=== PATIENT | male | born 1955 ===

== ENCOUNTER 2025-01-01 13:39 | Outpatient (AMB) | payer MEDICARE, BC, SELFPAY ==
--- NOTE | 2025-01-01 13:41 | A.OFFPC_ITS ---
Vital Signs 01/01/25 13:47 Height 5 ft 4.29 in Weight 171 lb BMI 29.1 BP 120/58 L Blood Pressure Location Rt brachial Position Sitting Respiration 16 Pulse 84 Pulse Source Pulse Oximeter Temp 98.1 F Temp Source Temporal Artery Scan Pulse Oximetry (%) 99 Oxygen Delivery Method Room Air Intake Visit Reasons: pre-op cataract surgery 01/15 Car Top Bolter Required: No Accompanied by: Self / Same As Patient Allergies No Known Allergies Allergy (Verified 01/01/25 14:27) Medication List - Last Reconciled 01/01/25 by Ashlie Cohen PA-C cholecalciferol (vitamin D3) 50 mcg PO DAILY lisinopril 20 mg PO DAILY metformin 1,000 mg PO BID pravastatin 80 mg PO QPM prednisolone acetate 1% 1 drp ophthalmic (eye) QID propafenone ER 225 mg PO Q12H sodium bicarbonate 650 mg PO tamsulosin mg PO Tobacco use date assessed: 01/01/25 Fall risk assessment: No Falls in past year Last assessed Fall Risk: 01/01/25 Dental Screening Dental Screen Date: 01/01/25 Did you have a dental visit in the last 12 months?: Yes Did you have a dental problem in the last 6 months where you did not have access to dental care?: No Was dental information given to patient?: Patient has dentist HPI pre-op cataract surgery 01/15 HPI Details The patient is a 69-year-old male presenting for a new patient appointment and preoperative evaluation for cataract surgery. The patient has a history of Type 2 Diabetes Mellitus, managed with metformin 1000 mg twice daily. His recent A1c level was 6.3, indicating good glycemic control. He has a history of hypertension, currently managed with lisinopril 20 mg. He also has hyperlipidemia, for which he takes pravastatin. The patient has obstructive sleep apnea but is not using CPAP therapy. He also has a history of atrial fibrillation and bradycardia, with a recent cardioversion performed. He has chronic kidney disease, with a baseline creatinine of 1.53 and a GFR of 48. Last year, he experienced an episode of hypotension leading to kidney injury, but his creatinine levels have since improved. The patient has a history of a pacemaker implantation in August 2024, following episodes of bradycardia. He also has a history of bilateral hip surgery, corneal surgery, and appendectomy. 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 The patient has been exposed to asbestos in the past, and he has chronic anemia. Recent lab work showed hyperkalemia with a potassium level of 6.2, and vitamin D deficiency with a level of 25.8. He is advised to avoid high-potassium foods and will start on a vitamin D supplement. Social History - Alcohol Consumption: Ongoing alcohol c onsumption at a consistent level for ye ars. [facility] [place] Medical History (Updated 01/01/25 @ 14:38 by Ashlie Cohen PA-C) H/O asbestos exposure CKD (chronic kidney disease) Paroxysmal atrial fibrillation Chronic anemia Obstructive sleep apnea Hyperlipidemia Hypertension Type 2 diabetes mellitus with hemoglobin A1c goal of less than 7.0% Pre-op evaluation Vitamin D deficiency Hyperkalemia Establishing care with new doctor, encounter for Family History Father No problems noted. Mother High blood pressure Social History Housing: Condominium Alcohol intake: current Alcohol intake frequency: 0-2 drinks per day Alcohol type: hard liquor Patient Tobacco Use Status: Never used Tobacco service: No Current occupational status: retired Cognitive needs: No Hearing needs: No Vision needs: No Questionnaire PHQ-9 Over the last 2 weeks, how often have you been bothered by any of the following problems? 1. Little interest or pleasure in doing things: not at all 2. Feeling down, depressed, or hopeless: not at all 3. Trouble falling or staying asleep, or sleeping too much: not at all 4. Feeling tired or having little energy: not at all 5. Poor appetite or overeating: not at all 6. Feeling bad about yourself - or that you are a failure or have let yourself or your family down: not at all 7. Trouble concentrating on things, such as reading the newspaper or watching television: not at all 8. Moving or speaking so slowly that other people could have noticed. Or the opposite - being so fidgety or restless that you have been moving around a lot more than usual: not at all 9. Thoughts that you would be better off or of hurting yourself in some way: not at all Total score: 0 Depression Screening Interpretation: Negative Depression Screening Done: Yes 94855 - PHQ-9 Billing: Yes Source: Developed by Drs. Vamshi Bryan, Rina Ho, Rj Oneil and colleagues, with an educational crystal from [employer]. Thrive Questionnaire Date Thrive assessed: 01/01/25 I am a: Patient What is your living situation today?: I have a steady place to live Within the past 12 months, did the food you bought not last and you didn't have the money to get more?: Never true Within the past 12 months, did you worry whether your food would run out before you got money to buy more?: Never true Do you have trouble paying for medicines?: No Do you have trouble getting transportation to medical appointments?: No Do you have trouble paying your heating and electricity bill?: No Do you have trouble taking care of your child, family member or friend?: No Do you have trouble with day-to-day activities such as bathing, preparing meals, shopping, managing finances, etc.?: No Are you currently unemployed and looking for a job?: No Are you interested in more education?: No Please select the resources that you would like help with: None Currently or been in a relationship where the following occur: No concerns reported THRIVE Score: 0 AUDIT C Alcohol Use Questionnaire (AUDIT-C) 1. How often do you have a drink containing alcohol?: 4 or more times a week 2. How many drinks containing alcohol do you have on a typical day when you are drinking?: 1 or 2 3. How often do you have six or more drinks on one occasion?: Never Total Score: 4 Score Reviewed/Action Taken: No VALENTINA-7 AMB Questionnaire VALENTINA-7 Date VALENTINA - 7 assessed: 01/01/25 Feeling nervous, anxious, or on edge: 0 = Not at all Not being able to stop or control worryin = Not at all Worrying too much about different things: 0 = Not at all Trouble relaxin = Not at all Being so restless that it is hard to sit still: 0 = Not at all Becoming easily annoyed or irritable: 0 = Not at all Feeling afraid as if something awful might happen: 0 = Not at all Total VALENTINA-7 score (0-4 normal; 5-9 mild; 10-14 moderate; 15-21 severe): 0 Source: Developed by Drs. Vamshi Bryan, Rina Ho, Rj Oneil and colleagues, with an educational crystal from [employer]. VALENTINA-7 Assessment Billing VALENTINA-7 Assessment Tool: VALENTINA-7 Assessment 56320 Review of Systems Const Details: - Cardiovascular: Denies chest pain, orthopnea, or syncope. - Respiratory: Reports dyspnea on exertion with significant exertion. Denies cough, hemoptysis, or wheezing. - Gastrointestinal: Denies black or bloody stools, unintentional weight loss. Physical exam (Primary Care) Vital Signs: Last Vital Signs Temp 98.1 F 01/01/25 13:47 Pulse 84 01/01/25 13:47 Resp 16 01/01/25 13:47 BP 120/58 L 01/01/25 13:47 Pulse Ox 99 01/01/25 13:47 Oxygen Delivery Method Room Air 01/01/25 13:47 Care Plan Goal for BP management: <140/90 at Goal BMI result Body Mass Index 29.1 BMI Assessment/Plan discussion: High BMI High, discussed plan: lifestyle, weight reduction, dietary, physical activity and alcohol moderation Tobacco/Smoking Status: Tobacco use Status Tobacco use date assessed 01/01/25 01/01/25 13:47 Patient Tobacco Use Status Never used Tobacco 01/01/25 14:01 PHQ-9: PHQ-9 Score PHQ-9: Total score 0 01/01/25 14:27 Depression Screening Interpretation: Negative Thrive Assessment: Date of Thrive Assessment Date Thrive assessed 01/01/25 01/01/25 13:47 Currently or been in a relationship where the following occur: No concerns reported Const Other: Appearance: Alert. Oriented X3. No acute distress. Head: Normal external exam. Normocephalic. Atraumatic. Eyes: Pupils are equal, round, and reactive to light. Extraocular movements intact. Conjunctiva and sclera normal. Eyelids normal. Ears: External auditory canal normal. Tympanic membranes normal. Throat: Pharynx normal. Uvula midline. Moist mucous membranes. Neck: Normal inspection. Neck supple. Full range of motion. No adenopathy. Thyroid Normal. No meningeal signs. No neck mass noted. Cardiovascular: Normal heart rate and rhythm. Heart sound normal. No murmurs noted. Pulses normal throughout. Respiratory: No respiratory distress. Painless inspiration. Breath sounds normal. No wheezes/rales/rhonchi noted. Chest nontender. No accessory muscle usage noted or decreased air movement noted. Abdomen: Soft and nontender. Bowel sounds normal in all 4 quadrants. No distention noted. No organomegaly noted. No visible injury noted. Back: No costovertebral angle tenderness. Full range of motion noted. Skin: Skin warm and dry. Normal skin color. Normal skin turgor. No rashes/lesion s/lacerations noted. Extremities: No lower extremity edema. Extremities exhibit normal range of motion. Extremities nontender. Neuro: Oriented X 3. No motor deficit. No sensory deficit. Reflexes normal. Results Reviewed Results Reviewed: - Labs on 12/18/2024 reviewed and revealed: CBC normal, Hgb 12.8, Hct 39.9, MCV 102, BUN 29, glucose 96, bicarb 17, calcium 9.9, creatinine 1.53, GFR 48, potassium 6.2, vitamin D 25.8. - Tests: EKG showed atrial fibrillation with slow ventricular response. Coding Level of Care Code New Pt Level 5 (93496) Complex EM visit Add On G2211 Diagnoses Establishing care with new doctor, encounter for Z76.89 Pre-op evaluation Z01.818 Type 2 diabetes mellitus with hemoglobin A1c goal of less than 7.0% E11.9 Hypertension I10 Hyperlipidemia E78.5 Obstructive sleep apnea G47.33 Paroxysmal atrial fibrillation I48.0 CKD (chronic kidney disease) N18.9 Hyperkalemia E87.5 Vitamin D deficiency E55.9 Additional Codes VALENTINA-7 Assessment Billing - VALENTINA-7 Assessment Tool: VALENTINA-7 Assessment 69188 ([id number]) PHQ-9 - 65257 - PHQ-9 Billing: Yes ([id number]) Time Spent (min) 60 Assessment & Plan Assessment & Plan (1) Establishing care with new doctor, encounter for: Code(s): Z76.89 - Persons encountering health services in other specified circumstances Category: Medical (2) Pre-op evaluation: Code(s): Z01.818 - Encounter for other preprocedural examination Category: Medical Plan: Patient is scheduled to have cataract surgery on 01/14/2025. (3) Type 2 diabetes mellitus with hemoglobin A1c goal of less than 7.0%: Code(s): E11.9 - Type 2 diabetes mellitus without complications Category: Medical Plan: The patient's Type 2 Diabetes Mellitus is currently managed with metformin 1000 mg twice daily, and his recent A1c level of 6.3 indicates good glycemic control. Condition is chronic and stable will continue to monitor. (4) Hypertension: Code(s): I10 - Essential (primary) hypertension Category: Medical Plan: Hypertension is managed with lisinopril 20 mg. Condition is chronic and stable will continue to monitor. (5) Hyperlipidemia: Code(s): E78.5 - Hyperlipidemia, unspecified Category: Medical Plan: Hyperlipidemia is managed with pravastatin. Condition is chronic and stable continue to monitor. (6) Obstructive sleep apnea: Code(s): G47.33 - Obstructive sleep apnea (adult) (pediatric) Category: Medical Plan: The patient has obstructive sleep apnea but is not currently using CPAP therapy. Condition is chronic and stable will continue to monitor. (7) Paroxysmal atrial fibrillation: Code(s): I48.0 - Paroxysmal atrial fibrillation Category: Medical Plan: The patient has a history of atrial fibrillation and bradycardia, with a recent cardioversion performed. Condition is chronic and stable will continue to monitor. (8) CKD (chronic kidney disease): Code(s): N18.9 - Chronic kidney disease, unspecified Category: Medical Plan: The patient has chronic kidney disease with a baseline creatinine of 1.53 and a GFR of 48. Patient being followed by Nephrology at [facility]. Condition is chronic and stable will continue to monitor. (9) Hyperkalemia: Code(s): E87.5 - Hyperkalemia Category: Medical Plan: The patient has hyperkalemia with a potassium level of 6.2 and is advised to avoid high-potassium foods. Will reassess potassium levels with a basic metabolic panel within the next 24-48 hours. Patient understands and agrees with this plan. (10) Vitamin D deficiency: Code(s): E55.9 - Vitamin D deficiency, unspecified Category: Medical Plan: The patient has vitamin D deficiency with a level of 25.8 and will start on a vitamin D supplement. Condition is chronic and stable will continue to monitor. Plan Plan Patient was informed and verbally consented to the use of an ambient scribe for clinic note documentation during this visit. 1. Type 2 Diabetes Mellitus The patient's Type 2 Diabetes Mellitus is currently managed with metformin 1000 mg twice daily, and his recent A1c level of 6.3 indicates good glycemic control. 2. Hypertension Hypertension is managed with lisinopril 20 mg. 3. Hyperlipidemia Hyperlipidemia is managed with pravastatin. 4. Obstructive Sleep Apnea The patient has obstructive sleep apnea but is not currently using CPAP therapy. 5. Atrial Fibrillation The patient has a history of atrial fibrillation and bradycardia, with a recent cardioversion performed. 6. Chronic Kidney Disease The patient has chronic kidney disease with a baseline creatinine of 1.53 and a GFR of 48. 7. Hyperkalemia The patient has hyperkalemia with a potassium level of 6.2 and is advised to avoid high-potassium foods. 8. Vitamin D Deficiency The patient has vitamin D deficiency with a level of 25.8 and will start on a vitamin D supplement. During the visit, I discussed the patient's hyperkalemia and advised avoiding high-potassium foods. We also talked about starting a vitamin D supplement due to deficiency. I recommended follow-up blood work to reassess potassium levels before surgery. The patient was informed about the importance of managing these conditions to ensure safe surgical outcomes. Orders: Orders TSH reflex Free T4 Today Z00.00 - Encounter for general adult medical examination without abnormal findings Basic Metabolic Panel Today E55.9 - Vitamin D deficiency, unspecified, E87.5 - Hyperkalemia, E87.6 - Hypokalemia Magnesium Today Z00.00 - Encounter for general adult medical examination without abnormal findings Vitamin B12 and Folate Today Z00.00 - Encounter for general adult medical examination without abnormal findings ECG 12 lead EKG Today Z01.818 - Encounter for other preprocedural examination XR chest 2V Today Z01.818 - Encounter for other preprocedural examination Medications: New cholecalciferol (vitamin D3) 50 mcg PO DAILY 90 caps 1RF E55.9 - Vitamin D deficiency, unspecified Patient Instructions: - Avoid high-potassium foods such as bananas. - Start taking a vitamin D supplement daily. - Complete follow-up blood work to reassess potassium levels before surgery. - Follow up with nephrology as advised.
[2025-01-01 13:47] VITALS: BP 120/58; PULSE 84; RESP 16; TEMP 36.7; O2SAT 99; BMI 29.1
--- OUTSIDE RECORDS SUMMARY | 2025-01-01 16:08 | XMS_ITS | Data Portability ---
Author Organization [facility] [employer], [facility] Address [facility] [place] [address] Care Team Providers Care Scheduling Coordinator Name Role Phone BLANCHE GODINEZ Referring Provider KEY HUNTER Primary Care Provider Unavailabl e Assessment Encounter Date Assessment Date Assessment LastModified by Organization Details LastModified Time 11/20/2024 11/20/2024 Today's visit included topics marked reviewed below: * Assessment & education on health condition(s): reviewed today * Assessment for Palliative/Ho spice Care: reviewed today * Assessment for outstanding results/order s/consults: reviewed today * Medication Reconciliatio n: reviewed today * Medication Adherence: reviewed today * Physical Exam: reviewed today * Home Health needs addressed: reviewed today * Home AP visit needs addressed: reviewed today * Review of upcoming procedures or specialty visits: reviewed today Additional notes: teressa Not available 11/20/2024 07:45:31 Plan of Treatment Reminders Order Date Submit Date Provider Last Modified By Organization Details Last Modified Time Details Appointments LAB 10 2024 07:50A M LAB TABATHA Not available Not available Not available ESTABLISH ED OV 30 2024 11:30A M Marybel Vu APRN Not available Not available Not available ANNUAL WELLNESS SUBSEQ 15 2025 11:00A M DR BLANCHE GODINEZ Not available Not available Not available Lab vitamin D, 25-hydrox y, total, serum 2024 09// 025 teressa [facility], [address] [place] [address] [address], [place], [address], 11/20/2024 13:39:01 magnesium , serum or plasma 2024 025 [place] [address] [facility], [address], [place], [address], 11/20/2024 13:39:01 PTH (parathyr oid hormone), intact, serum or plasma 2024 025 [place] [address] [facility], [address], [place], [address], 11/20/2024 13:39:01 lipid panel, serum 2024 025 [place] [address] [facility], [address], [place], [address], 11/20/2024 13:39:01 gamma-glu tamyl transfera se (ggt), serum 2024 025 [place] [address] [facility], [address], [place], [address], 11/20/2024 13:39:01 HbA1c (hemoglob in A1c), blood 2024 025 [place] [address] [facility], [address], [place], [address], 11/20/2024 13:39:01 microalbu min/creat inine, ratio, urine 2024 025 [place] [facility], [address], [place], [address], 11/20/2024 13:39:01 PSA, total + free, serum or plasma 2024 025 [place] [facility], [address], [place], [address], 11/20/2024 13:39:01 vitamin B12 + folate, serum or blood 2024 025 [place] [address] [facility], [address], [place], [address], 11/20/2024 13:39:01 CBC 2024 025 [place] [address] [facility], [address], [place], [address], 11/20/2024 13:39:01 urinalysi s, complete 2024 025 [place] [address] [facility], [address], [place], [address], 11/20/2024 13:39:01 CMP, serum or plasma 2024 025 [place] [address] [facility], [address], [place], [address], 11/20/2024 13:39:01 venipunct ure 2024 025 [place] [address] [facility], [address], [place], [address], 11/20/2024 13:39:01 PSA, serum or plasma 2024 025 [place] [facility], [address], [place], [address], 10/03/2024 10:16:43 fecal occult blood, immunoass ay, stool 2024 025 [place] [facility], [address], [place], [address], 10/11/2024 10:11:59 vitamin B1 (thiamine ), blood 2024 025 [facility], [address], [place], [address], 11/21/2024 06:13:43 magnesium , serum or plasma 2024 025 [facility], [address], [place], [address], 11/14/2024 11:21:07 renal function panel, serum 2024 025 [facility], [address], [place], [address], 09/24/2024 04:58:47 CMP, serum or plasma 2024 025 [facility], [address], [place], [address], 11/14/2024 11:21:03 vitamin D, 25-hydrox y, total, serum 2024 025 [facility], [address], [place], [address], 11/14/2024 11:21:10 lipid panel, serum 2024 025 [facility], [address], [place], [address], 11/14/2024 11:21:06 gamma-glu tamyl transfera se (ggt), serum 2024 025 [facility], [address], [place], [address], 11/14/2024 11:21:05 CBC 2024 025 [facility], [address], [place], [address], 11/13/2024 15:43:59 HbA1c (hemoglob in A1c), blood 2024 025 [facility], [address], [place], [address], 11/13/2024 15:10:33 venipunct ure 2024 025 [facility], [address], [place], [address], 11/13/2024 11:06:51 microalbu min/creat inine, ratio, urine 2024 025 [facility], [address], [place], [address], 11/13/2024 16:35:53 urinalysi s, complete 2024 025 [place] [facility], [address], [place], [address], 11/13/2024 14:43:46 vitamin B12 + folate, serum or blood 2024 025 [place] [facility], [address], [place], [address], 11/14/2024 11:21:08 vitamin D, 25-hydrox y, total, serum 2023 025 [place] [facility], [address], [place], [address], 08/16/2024 14:35:02 lipid panel, serum 2023 025 [place] [facility], [address], [place], [address], 08/16/2024 14:25:56 gamma-glu tamyl transfera se (ggt), serum 2023 025 [facility], [address], [place], [address], 08/16/2024 14:25:50 CBC 2023 025 [facility], [address], [place], [address], 08/16/2024 14:18:19 HbA1c (hemoglob in A1c), blood 2023 025 [facility], [address], [place], [address], 08/16/2024 14:50:46 CMP, serum or plasma 2023 025 [facility], [address], [place], [address], 08/16/2024 14:25:47 venipunct ure 2023 025 [facility], [address], [place], [address], 08/16/2024 08:10:48 microalbu min/creat inine, ratio, urine 2023 025 [facility], [address], [place], [address], 08/16/2024 14:45:38 urinalysi s, complete 2023 025 [facility], [address], [place], [address], 08/16/2024 13:52:16 iron + TIBC + ferritin, serum 2023 025 [facility], [address], [place], [address], 08/16/2024 14:25:53 vitamin B12 + folate, serum or blood 2023 025 [facility], [address], [place], [address], 08/16/2024 15:01:52 TSH, serum or plasma 2023 025 [facility], [address], [place], [address], 08/16/2024 14:34:55 magnesium , serum or plasma 2023 025 [facility], [address], [place], [address], 08/16/2024 14:25:59 T4, free, serum 2023 025 [facility], [address], [place], [address], 08/16/2024 14:34:51 Referral pulmonolo gist referral - Dr. Dye & Dr. Douglas ([place]) cardiolog y would like PFT's for new atrial fibrillat ion. No longer using CPAP. hx of asbestos exposure. 2023 024 LUKE Celis MD, [address], [address], [address], 2024 13:33:04 urologist referral - pt has catheter in from hospital and needs urologist to take it out and follow. 2023 024 [facility], [address], [place], [address], 10/18/2024 09:14:07 Procedures None recorded. Surgeries None recorded. Imaging electroca rdiogram 2024 025 In-Office Order, Internal Use Only DO Not Attach Compendium DO Not Attach Compendium, Do Not Delete/merge, [id number] 10/03/2024 11:11:58 Medication Orders Xarelto 15 mg tablet 2024 025 [facility][id number], [address] [place], [address], 11/20/2024 10:33:37 Patient TargetsNo targets recorded. Patient Instructions Encounter Date Encounter Id Patient Instructions Last Modified By Organization Details Last Modified Time 01/12/2024 [id number] dehydration: car e instructions [email or web address] Not available 01/12/2024 14:56:55 Patient understands instructions and will seek medical attention if symptoms worsen as directed. [email or web address] Not available 01/12/2024 14:15:18 05/02/2024 [id number] alcohol detoxification and withdrawal: care instructions Not available 05/02/2024 10:30:55 substance use disorder: care instructions Not available 05/02/2024 10:30:55 sleep apnea: car e instructions Not available 05/02/2024 09:23:03 Patient understands instructions and will seek medical attention if symptoms worsen as directed. chart and labs and studies reviewed. Not available 05/02/2024 09:25:13 08/26/2024 [id number] alcohol detoxification and withdrawal: care instructions Not available 08/26/2024 09:46:10 substance use disorder: care instructions Not available 08/26/2024 09:46:10 Value Based Patient Guide Not available 08/26/2024 09:46:10 Patient understands instructions and will seek medical attention if symptoms persist or worsen as directed. Reviewed chart, labs and studies. Parts of this note were created using voice recognition software. 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 Please contact my office for any further clarification, if needed. [email or web address] Not available 08/26/2024 09:13:26 10/03/2024 [id number] advance directives: care instructions honey Not available 10/03/2024 10:16:27 learning about living marcos honey Not available 10/03/2024 10:16:27 do not rescuscitate education honey Not available 10/03/2024 10:16:27 Advance Directives Education w/sample forms for Living Will/Health Care Surrogate [email or web address] Not available 10/03/2024 10:16:27 Value Based Patient Guide honey Not available 10/03/2024 10:16:27 SCREENING SCHEDULE DEPRESSION SCREENING: A Depression Screening Assessment was conducted, with staff-assisted depression care supports during this encounter and all actions of this assessment and time elements of up to 15 minutes were met. COLORECTAL CANCER SCREENING: Colonoscopy, average risk, every 10 years unless advised differently by provider CERVICAL CANCER SCREENING - PAP (female only): no longer recommended due to hysterectomy, age, and/or low risk unless advised differently by provider BREAST CANCER SCREENING: Mammogram: recommended annually unless advised differently by provider OSTEOPOROSIS SCREENING - Bone density (female only): At age 65 and every 2 years or as advised by your provider CARDIOVASCULAR RISK SCREENING - AAA screening (male only): Recommended once per lifetime, if personal history of smoking greater than 100 cigs and age 65-75 VACCINE RECOMMENDATIONS: (except if you have experienced severe allergic reaction [e.g. anaphylaxis] after a previous dose/a component of these vaccines OR otherwise advised by your provider not to receive it) Covid vaccine: vaccine recommended per guidelines Influenza vaccine: recommended annually Pneumococcal Vaccine: vaccine recommended per guidelines Shingles vaccine - Shingrix: vaccine recommended per guidelines Tetanus vaccine: recommended every 10 years SCREENING SCHEDULE DEPRESSION SCREENING: COLORECTAL CANCER SCREENING: CERVICAL CANCER SCREENING - PAP: BREAST CANCER SCREENING: Self Breast exam: Mammogram: PROSTATE CANCER SCREENING - PSA: OSTEOPOROSIS SCREENING - Bone density: CARDIOVASCULAR RISK SCREENING - AAA screening: VACCINE RECOMMENDATIONS: For Ages 65 or greater (<65 yo, see CDC guidelines) Covid vaccine: booster up-to-date Influenza vaccine: recommended annually Pneumococcal Vaccine: up to date, no further PCV needed Shingles vaccine - Shingrix: up-to-date Tetanus vaccine: recommended every 10 years [email or web address] Not available 10/02/2024 07:40:46 Patient understands instructions and will seek medical attention if symptoms worsen as directed. chart and labs and studies reviewed [email or web address] Not available 10/02/2024 07:40:46 11/20/2024 [id number] alcohol detoxification and withdrawal: care instructions Not available 11/20/2024 10:36:05 substance use disorder: care instructions Not available 11/20/2024 10:36:05 sleep apnea: car e instructions Not available 11/20/2024 10:36:05 Value Based Patient Guide [email or web address] Not available 11/20/2024 10:35:27 Patient understands instructions and will seek medical attention if symptoms persist or worsen as directed. Reviewed chart, labs and studies. Parts of this note were created using voice recognition software. 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 Please contact my office for any further clarification, if needed. [email or web address] Not available 11/20/2024 10:47:44 Reason for Referral Urologist Referral for Reten tion of urine pt has catheter in from hospital and needs urologist to take it out and follow. Referring Physician: Chelly Velasco, Family Medicine, Encounter Date: 01/12/2024 [employer] Mechanic Helper Referral for O bstructive sleep apnea syndrome Dr. Dye & Dr. Douglas ([place]) cardiology would like PFT's for new atrial fibrillation. No longer using CPAP. hx of asbestos exposure. Referring Physician: Marybel Vu, Family Medicine, Encounter Date: 05/02/2024 Results Created Date Observation Date Name Description Value Unit Range Abnormal Flag Note LastModifiedBy Organization Detail LastModifiedTime 04/26/20 24 04/26/2024 A1C hemoglobin A1C 6.7 % 4.3 - 5.6 high ADA Recom jennifer d guide lines for HgbA1 C%: 5.7-6 .4% Predi abeti c < 7.0% Reaso nable glyce lois goal for non-p regna nt adult s < 8.0% Appro priat e for patie nts with hypog lycem ia or advan payton micro /macr o vascu lar compl icati ons Not Available [facility] [address] [place], [address], 04/26/2024 14:19:07 04/26/20 24 04/26/2024 A1C estimated average glucose 146 mg/dL 97 - 140 high Not Available [facility] [address], [place], [address], 04/26/2024 14:19:07 04/26/20 24 04/26/2024 PSA SCREE N PSA, total 4.87 NG/mL 0.00 - 6.50 Updat ed range s in accor dance with ACS stand ards: AGE: Refer ence Range : < 50 yr 0.00- 2.50 ng/mL 50-59 yr 0.00- 3.50 ng/mL 60-69 yr 0.00- 4.50 ng/mL > 70 yr 0.00- 6.50 ng/mL Age speci fic joy l value s from the liter ature for PSA are provi ded as a guide only. No one decis ion level is appro priat e when utili zing PSA in scree gurinder situa tion, age, famil y histo ry, previ ous value s, and other facto rs shoul d be used in decis ions invol ving PSA value s. Not Available [facility] [address] [place], [address], 04/26/2024 14:57:07 04/26/20 24 04/26/2024 TSH W/REF KRISTINE TO FT4 TSH w/reflex FT4 4.1700 uIU/m L 0.2700 - 4.2000 Not Available [facility] [address], [place], [address], 04/26/2024 15:00:25 04/26/20 24 04/26/2024 CBC W/ AUTOD IFF, COMPL ETE BLOOD COUNT WBC 5.0 K/uL 3.6 - 10.0 Not Available [facility] [address], [place], [address], 04/26/2024 15:04:03 04/26/20 24 04/26/2024 CBC W/ AUTOD IFF, COMPL ETE BLOOD COUNT RBC 4.0 M/uL 4.1 - 5.8 low Not Available [facility] [address], [place], [address], 04/26/2024 15:04:03 04/26/2004/26/2024 CBC W/ AUTOD IFF, COMPL ETE BLOOD COUNT hemoglobin 12.4 g/dL 13.2 - 17.0 low Not Available [facility] [address], [place], [address], 04/26/2024 15:04:03 04/26/2004/26/2024 CBC W/ AUTOD IFF, COMPL ETE BLOOD COUNT hematocrit 37.9 % 37.0 - 51.0 Not Available [facility] [address], [place], [address], 04/26/2024 15:04:03 04/26/20 24 04/26/2024 CBC W/ AUTOD IFF, COMPL ETE BLOOD COUNT MCV 95.9 fL 80.0 - 99.0 Not Available [facility] [address], [place], [address], 04/26/2024 15:04:03 04/26/2004/26/2024 CBC W/ AUTOD IFF, COMPL ETE BLOOD COUNT MCH 31.3 pg 27.0 - 33.0 Not Available [facility] [address], [place], [address], 04/26/2024 15:04:03 04/26/20 24 04/26/2024 CBC W/ AUTOD IFF, COMPL ETE BLOOD COUNT MCHC 32.6 g/dL 32.0 - 37.5 Not Available [facility] [address], [place], [address], 04/26/2024 15:04:03 04/26/2004/26/2024 CBC W/ AUTOD IFF, COMPL ETE BLOOD COUNT RDW 16.1 % 11.0 - 15.0 high Not Available [facility] [address], [place], [address], 04/26/2024 15:04:03 04/26/2004/26/2024 CBC W/ AUTOD IFF, COMPL ETE BLOOD COUNT nucleated RBC 0 % 0 - 2 Not Available [facility] [address], [place], [address], 04/26/2024 15:04:03 04/26/2004/26/2024 CBC W/ AUTOD IFF, COMPL ETE BLOOD COUNT platelet 216 K/uL 140 - 440 Not Available [facility] [address], [place], [address], 04/26/2024 15:04:03 04/26/2004/26/2024 CBC W/ AUTOD IFF, COMPL ETE BLOOD COUNT MPV 8.1 fL 7.4 - 10.4 Not Available [facility] [address], [place], [address], 04/26/2024 15:04:03 04/26/2004/26/2024 CBC W/ AUTOD IFF, COMPL ETE BLOOD COUNT neutrophil, percentage 55.1 % Not Available [facility] [address], [place], [address], 04/26/2024 15:04:03 04/26/2004/26/2024 CBC W/ AUTOD IFF, COMPL ETE BLOOD COUNT lymphocyte, percentage 23.4 % Not Available [facility] [address], [place], [address], 04/26/2024 15:04:03 04/26/2004/26/2024 CBC W/ AUTOD IFF, COMPL ETE BLOOD COUNT monocyte, percentage 11.0 % Not Available [facility] [address], [place], [address], 04/26/2024 15:04:03 04/26/2004/26/2024 CBC W/ AUTOD IFF, COMPL ETE BLOOD COUNT eosinophil, percentage 9.1 % Not Available [facility] [address], [place], [address], 04/26/2024 15:04:03 04/26/2004/26/2024 CBC W/ AUTOD IFF, COMPL ETE BLOOD COUNT basophil, percentage 1.4 % Not Available [facility], [place], [address], 04/26/2024 15:04:03 04/26/2004/26/2024 CBC W/ AUTOD IFF, COMPL ETE BLOOD COUNT neutrophil, absolute 2.7 K/uL 1.5 - 7.5 Not Available [facility], [place], [address], 04/26/2024 15:04:03 04/26/2004/26/2024 CBC W/ AUTOD IFF, COMPL ETE BLOOD COUNT lymphocyte, absolute 1.2 K/uL 0.8 - 4.0 Not Available [facility] [address], [place], [address], 04/26/2024 15:04:03 04/26/2004/26/2024 CBC W/ AUTOD IFF, COMPL ETE BLOOD COUNT monocyte, absolute 0.5 K/uL 0.1 - 1.0 Not Available [facility] [address], [place], [address], 04/26/2024 15:04:03 04/26/20 24 04/26/2024 CBC W/ AUTOD IFF, COMPL ETE BLOOD COUNT eosinophil, absolute 0.5 K/uL 0.1 - 1.0 Not Available [facility] [address], [place], [address], 04/26/2024 15:04:03 04/26/2004/26/2024 CBC W/ AUTOD IFF, COMPL ETE BLOOD COUNT basophil, absolute 0.1 K/uL 0.0 - 0.2 Not Available [facility] [address] [facility] [address], [place], [address], 04/26/2024 15:04:03 04/26/20 24 04/26/2024 CK creatine kinase 168 U/L 30 - 223 Not Available [facility] [address], [place], [address], 04/26/2024 16:04:34 04/26/20 24 04/26/2024 CMP, COMPR EHENS GRACY METAB OLIC PANEL glucose 101 mg/dL 70 - 100 high Not Available [facility] [address] [facility] [address], [place], [address], 04/26/2024 16:04:40 04/26/2004/26/2024 CMP, COMPR EHENS GRACY METAB OLIC PANEL BUN 23 mg/dL 7 - 25 Not Available [facility] [address], [place], [address], 04/26/2024 16:04:40 04/26/20 24 04/26/2024 CMP, COMPR EHENS GRACY METAB OLIC PANEL creatinine 1.4 mg/dL 0.6 - 1.3 high Not Available [facility] [address], [place], [address], 04/26/2024 16:04:40 04/26/20 24 04/26/2024 CMP, COMPR EHENS GRACY METAB OLIC PANEL BUN/creatini ne ratio 16 calc 10 - 25 Not Available [facility] [address], [place], [address], 04/26/2024 16:04:40 04/26/20 24 04/26/2024 CMP, COMPR EHENS GRACY METAB OLIC PANEL GFR 53 mL/mi n/1.7 3m^2 >60 low GFR < 60 mL/mi n for 3 or more month s may be indic ative of Jessica Mina se. The GFR is based on the CKD-E PI 2020 equat ion. To calcu late the new GFR from a previ ous Creat inine resul t go to: https ://husam w.jill murray.o rg/pr ofess lindaal s/kdo qi/gf r&5Fc alcul ator. Not Available [facility] [address], [place], [address], 04/26/2024 16:04:40 04/26/20 24 04/26/2024 CMP, COMPR EHENS GRACY METAB OLIC PANEL sodium 141 mmol/ L 135 - 145 Not Available [facility] [address], [place], [address], 04/26/2024 16:04:40 04/26/20 24 04/26/2024 CMP, COMPR EHENS GRACY METAB OLIC PANEL potassium 4.8 mmol/ L 3.5 - 5.5 Not Available [facility] [address], [place], [address], 04/26/2024 16:04:40 04/26/20 24 04/26/2024 CMP, COMPR EHENS GRACY METAB OLIC PANEL chloride 105 mmol/ L 100 - 115 Not Available [facility] [address], [place], [address], 04/26/2024 16:04:40 04/26/20 24 04/26/2024 CMP, COMPR EHENS GRACY METAB OLIC PANEL CO2 25 mmol/ L 21 - 33 Not Available [facility] [address], [place], [address], 04/26/2024 16:04:40 04/26/2004/26/2024 CMP, COMPR EHENS GRACY METAB OLIC PANEL calcium 9.6 mg/dL 8.8 - 10.6 Not Available [facility] [address], [place], [address], 04/26/2024 16:04:40 04/26/2004/26/2024 CMP, COMPR EHENS GRACY METAB OLIC PANEL total protein 6.6 g/dL 6.2 - 8.6 Not Available [facility] [address], [place], [address], 04/26/2024 16:04:40 04/26/20 24 04/26/2024 CMP, COMPR EHENS GRACY METAB OLIC PANEL globulin 2.4 g/dL 1.3 - 4.0 Not Available [facility] [address], [place], [address], 04/26/2024 16:04:40 04/26/2004/26/2024 CMP, COMPR EHENS GRACY METAB OLIC PANEL albumin 4.2 g/dL 3.5 - 5.7 Not Available [facility] [address], [place], [address], 04/26/2024 16:04:40 04/26/20 04/26/2024 CMP, COMPR EHENS GRACY METAB OLIC PANEL A/G ratio 1.8 calc 1.0 - 2.8 Not Available [facility] [address], [place], [address], 04/26/2024 16:04:40 04/26/20 24 04/26/2024 CMP, COMPR EHENS GRACY METAB OLIC PANEL AST (SGOT) 14 U/L 13 - 39 Not Available [facility] [address], [place], [address], 04/26/2024 16:04:40 04/26/2004/26/2024 CMP, COMPR EHENS GRACY METAB OLIC PANEL ALT (SGPT) 9 U/L 7 - 52 Not Available [facility] [address], [place], [address], 04/26/2024 16:04:40 04/26/20 24 04/26/2024 CMP, COMPR EHENS GRACY METAB OLIC PANEL alkaline phosphatase 50 U/L 20 - 128 Not Available [facility] [address], [place], [address], 04/26/2024 16:04:40 04/26/20 24 04/26/2024 CMP, COMPR EHENS GRACY METAB OLIC PANEL total bilirubin 0.4 mg/dL 0.3 - 1.0 Not Available [facility] [address], [place], [address], 04/26/2024 16:04:40 04/26/20 24 04/26/2024 GGT GGT 18 U/L 5 - 65 Not Available [facility] [address], [place], [address], 04/26/2024 16:04:41 04/26/20 24 04/26/2024 LIPID PANEL W/ CALCU LATED LDL HDL cholestrol 63 mg/dL >50 Not Available [facility] [address] [place], [address], 04/26/2024 16:04:43 04/26/20 24 04/26/2024 LIPID PANEL W/ CALCU LATED LDL cholesterol 141 mg/dL <200 Expec anton resul ts for Adult s: Total Jessica stero l: Risk class ifica tion < 200 mg/dL Kaci able 200-2 39 mg/dL Borde rline high >240 mg/dL High Not Available [facility] [address] [place], [address], 04/26/2024 16:04:43 04/26/20 24 04/26/2024 LIPID PANEL W/ CALCU LATED LDL triglyceride 60 mg/dL 30 - 150 Not Available [facility] [address] [place], [address], 04/26/2024 16:04:43 04/26/2004/26/2024 LIPID PANEL W/ CALCU LATED LDL non-HDL cholesterol 78 mg/dL <130 Kaci able < 130 mg/dL Not Available [facility] [address] [place], [address], 04/26/2024 16:04:43 04/26/20 24 04/26/2024 LIPID PANEL W/ CALCU LATED LDL chol/HDL risk ratio 2 calc < 5.0 Optim al Not Available [facility] [address] [place], [address], 04/26/2024 16:04:43 04/26/20 24 04/26/2024 LIPID PANEL W/ CALCU LATED LDL LDL calculated 66 mg/dL 0 - 99 Not Available [facility] [address], [place], [address], 04/26/2024 16:04:43 04/26/20 24 05/01/2024 FRUCT OSAMI NE fructosamine 271 umol/ L 205-28 5 Not Available [facility] [address] [place] [address] [address] [facility], [place], [address], 05/01/2024 05:56:37 04/26/20 24 04/26/2024 VENIP UNCTU RE results Compl ete Not Available [facility] [address] [place] [address] [address], [place], [address], 04/26/2024 07:42:12 08/16/1908/16/2024 URINA LYSIS , COMPL ETE W/ REFLE X TO CULTU RE color LIGHT YELLOW yellow Not Available [facility] [address] [place] [address] [address] [facility], [place], [address], 08/16/2024 13:52:16 08/16/19 25 08/16/2024 URINA LYSIS , COMPL ETE W/ REFLE X TO CULTU RE appearance CLEAR clear, cloudy Not Available [facility] [address] [place] [address] [address] [facility], [place], [address], 08/16/2024 13:52:16 08/16/19 25 08/16/2024 URINA LYSIS , COMPL ETE W/ REFLE X TO CULTU RE specific gravity 1.009 1.005- 1.030 Not Available [facility] [address] [place] [address] [address] [place], [address], 08/16/2024 13:52:16 08/16/19 25 08/16/2024 URINA LYSIS , COMPL ETE W/ REFLE X TO CULTU RE pH 5.0 5.0-8. 0 Not Available [facility] [address] [place] [address] [address] [place], [address], 08/16/2024 13:52:16 08/16/19 25 08/16/2024 URINA LYSIS , COMPL ETE W/ REFLE X TO CULTU RE glucose, urine NEGATI VE mg/dL negati ve Not Available [facility], [place], [address], 08/16/2024 13:52:16 08/16/19 25 08/16/2024 URINA LYSIS , COMPL ETE W/ REFLE X TO CULTU RE bilirubin NEGATI VE mg/dL negati ve Not Available [facility] [address] [place], [place] [address]y [address], [place], [address], 08/16/2024 13:52:16 08/16/19 25 08/16/2024 URINA LYSIS , COMPL ETE W/ REFLE X TO CULTU RE ketone NEGATI VE mg/dL negati ve Not Available [facility] [address] [place] [address] [address], [place], [address], 08/16/2024 13:52:16 08/16/19 25 08/16/2024 URINA LYSIS , COMPL ETE W/ REFLE X TO CULTU RE urobilinogen NORMAL E.U./ dL normal Not Available [facility] [address] [place] [address] [address], [place], [address], 08/16/2024 13:52:16 08/16/19 25 08/16/2024 URINA LYSIS , COMPL ETE W/ REFLE X TO CULTU RE protein NEGATI VE mg/dL negati ve Not Available [facility] [address], [place], [address], 08/16/2024 13:52:16 08/16/19 25 08/16/2024 URINA LYSIS , COMPL ETE W/ REFLE X TO CULTU RE nitrite NEGATI VE negati ve Not Available [facility] [address] [place] [address] [address], [place], [address], 08/16/2024 13:52:16 08/16/19 25 08/16/2024 URINA LYSIS , COMPL ETE W/ REFLE X TO CULTU RE blood, urine NEGATI VE mg/dL negati ve Not Available [facility] [address], [place], [address], 08/16/2024 13:52:16 08/16/19 25 08/16/2024 URINA LYSIS , COMPL ETE W/ REFLE X TO CULTU RE leukocytes NEGATI VE arian/u L negati ve A micro scopi c will refle x for: > or = trace blood , > or = 25 leuko cytes , + Nitri anatoly or > or = 1+ prote in. Urine cultu re will refle x when any of the follo wing crite erwin is met: + Nitri anatoly > or = 75 leuko cytes > or = 6 WBC/h pf Many bacte erwin and/o r any amoun t of yeast on micro scopi c. Not Available [facility] [address] [place], [place] [address]y [address], [place], [address], 08/16/2024 13:52:16 08/16/19 25 08/16/2024 CBC W/ AUTOD IFF, COMPL ETE BLOOD COUNT WBC 7.7 K/uL 3.6 - 10.0 Not Available [facility] [address] [place], [place] [address]y [address] [place], [address], 08/16/2024 14:18:19 08/16/19 25 08/16/2024 CBC W/ AUTOD IFF, COMPL ETE BLOOD COUNT RBC 3.7 M/uL 4.1 - 5.8 low Not Available [facility] [address] [place], [place] [address]y [address], [place], [address], 08/16/2024 14:18:19 08/16/19 25 08/16/2024 CBC W/ AUTOD IFF, COMPL ETE BLOOD COUNT hemoglobin 12.4 g/dL 13.2 - 17.0 low Not Available [facility], [place], [address], 08/16/2024 14:18:19 08/16/19 25 08/16/2024 CBC W/ AUTOD IFF, COMPL ETE BLOOD COUNT hematocrit 35.8 % 37.0 - 51.0 low Not Available [facility], [place], [address], 08/16/2024 14:18:19 08/16/19 25 08/16/2024 CBC W/ AUTOD IFF, COMPL ETE BLOOD COUNT MCV 97.5 fL 80.0 - 99.0 Not Available [facility], [place], [address], 08/16/2024 14:18:19 08/16/19 25 08/16/2024 CBC W/ AUTOD IFF, COMPL ETE BLOOD COUNT MCH 33.9 pg 27.0 - 33.0 high Not Available [facility] [address] [place] [address] [address], [place], [address], 08/16/2024 14:18:19 08/16/19 25 08/16/2024 CBC W/ AUTOD IFF, COMPL ETE BLOOD COUNT MCHC 34.8 g/dL 32.0 - 37.5 Not Available [facility] [address] [place] [address] [address], [place], [address], 08/16/2024 14:18:19 08/16/19 25 08/16/2024 CBC W/ AUTOD IFF, COMPL ETE BLOOD COUNT RDW 15.3 % 11.0 - 15.0 high Not Available [facility], [place], [address], 08/16/2024 14:18:19 08/16/19 25 08/16/2024 CBC W/ AUTOD IFF, COMPL ETE BLOOD COUNT nucleated RBC 0 % 0 - 2 Not Available [facility] [address] [place] [address] [address], [place], [address], 08/16/2024 14:18:19 08/16/19 25 08/16/2024 CBC W/ AUTOD IFF, COMPL ETE BLOOD COUNT platelet 205 K/uL 140 - 440 Not Available [facility] [address] [place], [place] [address]y [address], [place], [address], 08/16/2024 14:18:19 08/16/19 25 08/16/2024 CBC W/ AUTOD IFF, COMPL ETE BLOOD COUNT MPV 8.8 fL 7.4 - 10.4 Not Available [facility] [address] [place], [place] [address]y [address], [place], [address], 08/16/2024 14:18:19 08/16/19 25 08/16/2024 CBC W/ AUTOD IFF, COMPL ETE BLOOD COUNT neutrophil, percentage 77.6 % Not Available [facility] [address] [place], [place] [address]y [address], [place], [address], 08/16/2024 14:18:19 08/16/19 25 08/16/2024 CBC W/ AUTOD IFF, COMPL ETE BLOOD COUNT lymphocyte, percentage 7.6 % Not Available [facility] [address] [place], [place] [address]y [address], [place], [address], 08/16/2024 14:18:19 08/16/19 25 08/16/2024 CBC W/ AUTOD IFF, COMPL ETE BLOOD COUNT monocyte, percentage 9.5 % Not Available [facility] [address] [place], [place] [address]y [address], [place], [address], 08/16/2024 14:18:19 08/16/19 25 08/16/2024 CBC W/ AUTOD IFF, COMPL ETE BLOOD COUNT eosinophil, percentage 4.1 % Not Available [facility], [place], [address], 08/16/2024 14:18:19 08/16/19 25 08/16/2024 CBC W/ AUTOD IFF, COMPL ETE BLOOD COUNT basophil, percentage 1.2 % Not Available [facility] [address] [place], [place] [address]y [address], [place], [address], 08/16/2024 14:18:19 08/16/19 25 08/16/2024 CBC W/ AUTOD IFF, COMPL ETE BLOOD COUNT neutrophil, absolute 6.0 K/uL 1.5 - 7.5 Not Available [facility] [address] [place], [place] [address], [place], [address], 08/16/2024 14:18:19 08/16/19 25 08/16/2024 CBC W/ AUTOD IFF, COMPL ETE BLOOD COUNT lymphocyte, absolute 0.6 K/uL 0.8 - 4.0 low Not Available [facility] [address] [place], [place] [address], [place], [address], 08/16/2024 14:18:19 08/16/19 25 08/16/2024 CBC W/ AUTOD IFF, COMPL ETE BLOOD COUNT monocyte, absolute 0.7 K/uL 0.1 - 1.0 Not Available [facility] [address] [place], [place] [address], [place], [address], 08/16/2024 14:18:19 08/16/19 25 08/16/2024 CBC W/ AUTOD IFF, COMPL ETE BLOOD COUNT eosinophil, absolute 0.3 K/uL 0.1 - 1.0 Not Available [facility] [address] [place], [place] [address]y [address], [place], [address], 08/16/2024 14:18:19 08/16/19 25 08/16/2024 CBC W/ AUTOD IFF, COMPL ETE BLOOD COUNT basophil, absolute 0.1 K/uL 0.0 - 0.2 Not Available [facility] [address] [facility] [address], [place], [address], 08/16/2024 14:18:19 08/16/19 25 08/16/2024 CMP, COMPR EHENS GRACY METAB OLIC PANEL glucose 126 mg/dL 70 - 100 high Not Available [facility] [address] [facility] [address], [place], [address], 08/16/2024 14:25:47 08/16/19 25 08/16/2024 CMP, COMPR EHENS GRACY METAB OLIC PANEL BUN 26 mg/dL 7 - 25 high Not Available [facility] [address] [facility] [address], [place], [address], 08/16/2024 14:25:47 08/16/19 25 08/16/2024 CMP, COMPR EHENS GRACY METAB OLIC PANEL creatinine 1.5 mg/dL 0.6 - 1.3 high Not Available [facility] [address] [facility] [address], [place], [address], 08/16/2024 14:25:47 08/16/19 25 08/16/2024 CMP, COMPR EHENS GRACY METAB OLIC PANEL BUN/creatini ne ratio 17 calc 10 - 25 Not Available [facility] [address] [place] [address] [address] [facility], [place], [address], 08/16/2024 14:25:47 08/16/19 25 08/16/2024 CMP, COMPR EHENS GRACY METAB OLIC PANEL GFR 49 mL/mi n/1.7 3m^2 >60 low GFR < 60 mL/mi n for 3 or more month s may be indic ative of Kidne y Disea se. The GFR is based on the CKD-E PI 2020 equat ion. Not Available [facility] [address], [place], [address], 08/16/2024 14:25:47 08/16/19 25 08/16/2024 CMP, COMPR EHENS GRACY METAB OLIC PANEL sodium 139 mmol/ L 135 - 145 Not Available [facility] [address], [place], [address], 08/16/2024 14:25:47 08/16/19 25 08/16/2024 CMP, COMPR EHENS GRACY METAB OLIC PANEL potassium 4.6 mmol/ L 3.5 - 5.5 Not Available [facility] [address], [place], [address], 08/16/2024 14:25:47 08/16/19 25 08/16/2024 CMP, COMPR EHENS GRACY METAB OLIC PANEL chloride 102 mmol/ L 100 - 115 Not Available [facility], [place], [address], 08/16/2024 14:25:47 08/16/19 25 08/16/2024 CMP, COMPR EHENS GRACY METAB OLIC PANEL CO2 25 mmol/ L 21 - 33 Not Available [facility], [place], [address], 08/16/2024 14:25:47 08/16/19 25 08/16/2024 CMP, COMPR EHENS GRACY METAB OLIC PANEL calcium 9.7 mg/dL 8.8 - 10.6 Not Available [facility] [address], [place], [address], 08/16/2024 14:25:47 08/16/19 25 08/16/2024 CMP, COMPR EHENS GRACY METAB OLIC PANEL total protein 7.2 g/dL 6.2 - 8.6 Not Available [facility], [place], [address], 08/16/2024 14:25:47 08/16/19 25 08/16/2024 CMP, COMPR EHENS GRACY METAB OLIC PANEL globulin 2.7 g/dL 1.3 - 4.0 Not Available [facility] [address], [place], [address], 08/16/2024 14:25:47 08/16/19 25 08/16/2024 CMP, COMPR EHENS GRACY METAB OLIC PANEL albumin 4.5 g/dL 3.5 - 5.7 Not Available [facility] [address], [place], [address], 08/16/2024 14:25:47 08/16/19 25 08/16/2024 CMP, COMPR EHENS GRACY METAB OLIC PANEL A/G ratio 1.6 calc 1.0 - 2.8 Not Available [facility], [place], [address], 08/16/2024 14:25:47 08/16/19 25 08/16/2024 CMP, COMPR EHENS GRACY METAB OLIC PANEL AST (SGOT) 13 U/L 13 - 39 Not Available [facility] [place], [address], 08/16/2024 14:25:47 08/16/19 25 08/16/2024 CMP, COMPR EHENS GRACY METAB OLIC PANEL ALT (SGPT) 8 U/L 7 - 52 Not Available [facility] [address] [place], [address], 08/16/2024 14:25:47 08/16/19 25 08/16/2024 CMP, COMPR EHENS GRACY METAB OLIC PANEL alkaline phosphatase 61 U/L 20 - 128 Not Available [facility] [address] [place], [place] [address]y [address], [place], [address], 08/16/2024 14:25:47 08/16/19 25 08/16/2024 CMP, COMPR EHENS GRACY METAB OLIC PANEL total bilirubin 0.8 mg/dL 0.3 - 1.0 Not Available [facility], [place], [address], 08/16/2024 14:25:47 08/16/19 25 08/16/2024 GGT GGT 23 U/L 5 - 65 Not Available [facility] [address], [place], [address], 08/16/2024 14:25:50 08/16/19 25 08/16/2024 IRON, TIBC & ALEXA TIN PANEL serum iron 58 ug/dL 45 - 210 Not Available [facility] [address] [place], [place] [address]y [address], [place], [address], 08/16/2024 14:25:53 08/16/19 25 08/16/2024 IRON, TIBC & ALEXA TIN PANEL iron binding capacity 366 ug/dL 250 - 450 Not Available [facility], [place], [address], 08/16/2024 14:25:53 08/16/19 25 08/16/2024 IRON, TIBC & ALEXA TIN PANEL unsaturated iron binding capacity 308 ug/dL Not Available [facility] [address], [place], [address], 08/16/2024 14:25:53 08/16/19 25 08/16/2024 IRON, TIBC & ALEXA TIN PANEL % iron saturation 16 % 13 - 45 Not Available [facility], [place], [address], 08/16/2024 14:25:53 08/16/19 25 08/16/2024 IRON, TIBC & ALEXA TIN PANEL ferritin 121 NG/mL 16 - 243 Not Available [facility] [address] [facility] [address] [place], [address], 08/16/2024 14:25:53 08/16/19 25 08/16/2024 LIPID PANEL W/ CALCU LATED LDL HDL cholestrol 70 mg/dL >50 Not Available [facility] [address] [facility] [address] [place], [address], 08/16/2024 14:25:56 08/16/19 25 08/16/2024 LIPID PANEL W/ CALCU LATED LDL cholesterol 140 mg/dL <200 Expec anton resul ts for Adult s: Total Jessica stero l: Risk class ifica tion < 200 mg/dL Kaci able 200-2 39 mg/dL Borde rline high >240 mg/dL High Not Available [facility] [address] [facility] [address] [place], [address], 08/16/2024 14:25:56 08/16/19 25 08/16/2024 LIPID PANEL W/ CALCU LATED LDL triglyceride 74 mg/dL 30 - 150 Not Available [facility] [address] [facility] [address] [place], [address], 08/16/2024 14:25:56 08/16/19 25 08/16/2024 LIPID PANEL W/ CALCU LATED LDL non-HDL cholesterol 70 mg/dL <130 Kaci able < 130 mg/dL Not Available [facility] [address] [facility] [address] [place], [address], 08/16/2024 14:25:56 08/16/19 25 08/16/2024 LIPID PANEL W/ CALCU LATED LDL chol/HDL risk ratio 2 calc < 5.0 Optim al Not Available [facility] [address] [facility] [address] [place], [address], 08/16/2024 14:25:56 08/16/19 25 08/16/2024 LIPID PANEL W/ CALCU LATED LDL LDL calculated 55 mg/dL 0 - 99 Not Available [facility] [address] [facility] [address] [place], [address], 08/16/2024 14:25:56 08/16/19 25 08/16/2024 MAGNE SIUM, SERUM magnesium 1.7 mg/dL 1.7 - 2.5 Not Available [facility] [address] [facility] [address] [place], [address], 08/16/2024 14:25:59 08/16/19 25 08/16/2024 T4, FREE free T4 1.320 NG/dL 0.930 - 1.770 Not Available [facility] [address] [place], [address], 08/16/2024 14:34:51 08/16/19 25 08/16/2024 TSH, THYRO ID STIMU LATIN G HORMO NE TSH 3.2600 uIU/m L 0.2700 - 4.2000 Not Available [facility] [address] [facility] [address] [place], [address], 08/16/2024 14:34:54 08/16/19 25 08/16/2024 VITAM IN D, 25-HY DROXY vitamin D, 25 hydroxy 33.50 NG/mL 30.00 - 100.00 [place] Jessica emmanuel Found ation consi ders level s < 30 ng/mL to be insuf ficie nt or defic ient. Not Available [facility] [address] [facility] [address] [place], [address], 08/16/2024 14:35:01 08/16/19 25 08/16/2024 MICRO ALBUM IN, RAND (UR/C REAT) urine albumin 19 mg/L <30 Not Available [facility] [address] [place], [address], 08/16/2024 14:45:38 08/16/19 25 08/16/2024 MICRO ALBUM IN, RAND (UR/C REAT) creatinine, urine 53 mg/dL 20 - 320 Not Available [facility] [address] [place], [address], 08/16/2024 14:45:38 08/16/19 25 08/16/2024 MICRO ALBUM IN, RAND (UR/C REAT) AC ratio 35.6 mg/g <30.0 high Refer ence Inter vals: The Ameri can Diabe anatoly Assoc iatio n defin ition of moder ately incre ased urine album in urine spot colle ction (mcg/ mg creat inine ) is as follo ws: < 30 Joy l 30 - 229 Moder ately incre ased >= 300 Clini jeannette album inuri a For diagn ostic purpo ses resul ts shoul d alway s be asses sed in conju nctio n with the patie nt's medic al histo ry, clini jeannette exami natio n and other findi ngs. Not Available [facility] [address] [place], [address], 08/16/2024 14:45:38 08/16/19 25 08/16/2024 A1C hemoglobin A1C 6.0 % 4.3 - 5.6 high ADA Recom jennifer d guide lines for HgbA1 C%: 5.7-6 .4% Predi abeti c < 7.0% Reaso nable glyce lois goal for non-p regna nt adult s < 8.0% Appro priat e for patie nts with hypog lycem ia or advan payton micro /macr o vascu lar compl icati ons Not Available [facility] [address], [place], [address], 08/16/2024 14:50:46 08/16/19 25 08/16/2024 A1C estimated average glucose 126 mg/dL 97 - 140 Not Available [facility] [address], [place], [address], 08/16/2024 14:50:46 08/16/19 25 08/16/2024 VITAM IN B12 & FOLAT E vitamin B-12 1547 pg/mL 232 - 1245 high Not Available [facility] [address], [place], [address], 08/16/2024 15:01:52 08/16/19 25 08/16/2024 VITAM IN B12 & FOLAT E folate 6.09 NG/mL >3.10 A serum Folat e axel ntrat ion of < 3.1 ng/ml is consi dered to repre sent clini jeannette defic iency . Not Available [facility] [address] [facility] [address], [place], [address], 08/16/2024 15:01:52 08/16/19 25 08/16/2024 VENIP UNCTU RE results Compl ete Not Available [facility] [address] [facility] [address], [place], [address], 08/16/2024 08:10:48 09/24/19 25 09/24/2024 RENAL PROFI LE glucose 138 mg/dL 65-99 high Fasti ng refer ence inter leyda For someo ne witho ut known diabe anatoly, a gluco se value >125 mg/dL indic ates that they may have diabe anatoly and this shoul d be confi rmed with a follo w-up test. Not Available [facility] [address] [facility] [address], [place], [address], 09/24/2024 04:58:47 09/24/19 25 09/24/2024 RENAL PROFI LE urea nitrogen (BUN) 22 mg/dL 7-25 normal Not Available [facility] [address] [facility] [address], [place], [address], 09/24/2024 04:58:47 09/24/19 25 09/24/2024 RENAL PROFI LE creatinine 1.47 mg/dL 0.70-1 .28 high Not Available [facility] [address] [facility] [address], [place], [address], 09/24/2024 04:58:47 09/24/19 25 09/24/2024 RENAL PROFI LE eGFR 51 mL/mi n/1.7 3m2 > or = 60 low Not Available [facility] [address] [facility] [address], [place], [address], 09/24/2024 04:58:47 09/24/19 25 09/24/2024 RENAL PROFI LE BUN/creatini ne ratio 15 (calc ) 6-22 normal Not Available [facility] [address] [facility] [address], [place], [address], 09/24/2024 04:58:47 09/24/19 25 09/24/2024 RENAL PROFI LE sodium 139 mmol/ L 135-14 6 normal Not Available [facility] [address] [facility] [address] [place], [address], 09/24/2024 04:58:47 09/24/19 25 09/24/2024 RENAL PROFI LE potassium 4.3 mmol/ L 3.5-5. 3 normal Not Available [facility] [address] [facility] [address], [place], [address], 09/24/2024 04:58:47 09/24/19 25 09/24/2024 RENAL PROFI LE chloride 102 mmol/ L 98-110 normal Not Available [facility] [address] [facility] [address], [place], [address], 09/24/2024 04:58:47 09/24/19 25 09/24/2024 RENAL PROFI LE carbon dioxide 27 mmol/ L 20-32 normal Not Available [facility] [address] [facility] [address] [facility], [place], [address], 09/24/2024 04:58:47 09/24/19 25 09/24/2024 RENAL PROFI LE calcium 10.1 mg/dL 8.6-10 .3 normal Not Available [facility] [address] [facility] [address] [facility], [place], [address], 09/24/2024 04:58:47 09/24/19 25 09/24/2024 RENAL PROFI LE phosphate ( phosphorus) 3.7 mg/dL 2.1-4. 3 normal Not Available [facility], [place], [address], 09/24/2024 04:58:47 09/24/19 25 09/24/2024 RENAL PROFI LE albumin 4.8 g/dL 3.6-5. 1 normal Not Available [facility] [address] [place] [address], [place], [address], 09/24/2024 04:58:47 09/24/19 25 09/23/2024 VENIP UNCTU RE results Compl ete Not Available [facility] [address] [place] [address] [address] [place], [address], 09/23/2024 13:27:51 10/11/19 25 10/11/2024 IFOBT NEO ifobt, screening NEGATI VE negati ve Not Available [facility] [address] [place] [address], [address], 10/11/2024 10:11:59 11/14/19 25 11/13/2024 URINA LYSIS , COMPL ETE W/ REFLE X TO CULTU RE color YELLOW yellow Not Available [facility] [address] [place] [address] [address], [place], [address], 11/13/2024 14:43:46 11/14/19 25 11/13/2024 URINA LYSIS , COMPL ETE W/ REFLE X TO CULTU RE appearance CLEAR clear, cloudy Not Available [facility] [address] [place] [address] [address], [place], [address], 11/13/2024 14:43:46 11/14/19 25 11/13/2024 URINA LYSIS , COMPL ETE W/ REFLE X TO CULTU RE specific gravity 1.010 1.005- 1.030 Not Available [facility] [address] [place] [address] [address], [place], [address], 11/13/2024 14:43:46 11/14/19 25 11/13/2024 URINA LYSIS , COMPL ETE W/ REFLE X TO CULTU RE pH 5.0 5.0-8. 0 Not Available [facility] [address] [place] [address] [address] [facility], [place], [address], 11/13/2024 14:43:46 11/14/19 25 11/13/2024 URINA LYSIS , COMPL ETE W/ REFLE X TO CULTU RE glucose, urine NEGATI VE mg/dL negati ve Not Available [facility] [address] [place] [address] [address], [place], [address], 11/13/2024 14:43:46 11/14/19 25 11/13/2024 URINA LYSIS , COMPL ETE W/ REFLE X TO CULTU RE bilirubin NEGATI VE mg/dL negati ve Not Available [facility] [address] [place] [address] [address], [place], [address], 11/13/2024 14:43:46 11/14/19 25 11/13/2024 URINA LYSIS , COMPL ETE W/ REFLE X TO CULTU RE ketone NEGATI VE mg/dL negati ve Not Available [facility] [address] [place] [address], [place], [address], 11/13/2024 14:43:46 11/14/19 25 11/13/2024 URINA LYSIS , COMPL ETE W/ REFLE X TO CULTU RE urobilinogen NORMAL E.U./ dL normal Not Available [facility] [address] [place] [address] [address] [facility], [place], [address], 11/13/2024 14:43:46 11/14/19 25 11/13/2024 URINA LYSIS , COMPL ETE W/ REFLE X TO CULTU RE protein NEGATI VE mg/dL negati ve Not Available [facility] [address] [place] [address], [address], 11/13/2024 14:43:46 11/14/19 25 11/13/2024 URINA LYSIS , COMPL ETE W/ REFLE X TO CULTU RE nitrite NEGATI VE negati ve Not Available [facility] [address] [place] [address], [address], 11/13/2024 14:43:46 11/14/19 25 11/13/2024 URINA LYSIS , COMPL ETE W/ REFLE X TO CULTU RE blood, urine NEGATI VE mg/dL negati ve Not Available [facility] [address] [place] [address], [place], [address], 11/13/2024 14:43:46 11/14/19 25 11/13/2024 URINA LYSIS , COMPL ETE W/ REFLE X TO CULTU RE leukocytes NEGATI VE arian/u L negati ve A micro scopi c will refle x for: > or = trace blood , > or = 25 leuko cytes , + Nitri anatoly or > or = 1+ prote in. Urine cultu re will refle x when any of the follo wing crite erwin is met: + Nitri anatoly > or = 75 leuko cytes > or = 6 WBC/h pf Many bacte erwin and/o r any amoun t of yeast on micro scopi c. Not Available [facility] [address] [facility] [address], [place], [address], 11/13/2024 14:43:46 11/14/19 25 11/13/2024 A1C hemoglobin A1C 6.1 % 4.3 - 5.6 high ADA Recom jennifer d guide lines for HgbA1 C%: 5.7-6 .4% Predi abeti c < 7.0% Reaso nable glyce lois goal for non-p regna nt adult s < 8.0% Appro priat e for patie nts with hypog lycem ia or advan payton micro /macr o vascu lar compl icati ons Not Available [facility] [address] [facility] [address] [place], [address], 11/13/2024 15:10:33 11/14/19 25 11/13/2024 A1C estimated average glucose 128 mg/dL 97 - 140 Not Available [facility] [address] [facility] [address] [place], [address], 11/13/2024 15:10:33 11/14/19 25 11/13/2024 CBC W/ AUTOD IFF, COMPL ETE BLOOD COUNT WBC 4.9 K/uL 3.6 - 10.0 Not Available [facility] [address] [facility] [address] [place], [address], 11/13/2024 15:43:58 11/14/19 25 11/13/2024 CBC W/ AUTOD IFF, COMPL ETE BLOOD COUNT RBC 4.0 M/uL 4.1 - 5.8 low Not Available [facility] [address] [facility] [address], [place], [address], 11/13/2024 15:43:58 11/14/19 25 11/13/2024 CBC W/ AUTOD IFF, COMPL ETE BLOOD COUNT hemoglobin 13.5 g/dL 13.2 - 17.0 Not Available [facility], [place], [address], 11/13/2024 15:43:58 11/14/19 25 11/13/2024 CBC W/ AUTOD IFF, COMPL ETE BLOOD COUNT hematocrit 40.7 % 37.0 - 51.0 Not Available [facility], [place], [address], 11/13/2024 15:43:58 11/14/19 25 11/13/2024 CBC W/ AUTOD IFF, COMPL ETE BLOOD COUNT MCV 102.1 fL 80.0 - 99.0 high Not Available [facility] [address] [place] [address] [address], [place], [address], 11/13/2024 15:43:58 11/14/19 25 11/13/2024 CBC W/ AUTOD IFF, COMPL ETE BLOOD COUNT MCH 33.8 pg 27.0 - 33.0 high Not Available [facility] [address] [place] [address] [address], [place], [address], 11/13/2024 15:43:58 11/14/19 25 11/13/2024 CBC W/ AUTOD IFF, COMPL ETE BLOOD COUNT MCHC 33.1 g/dL 32.0 - 37.5 Not Available [facility], [place], [address], 11/13/2024 15:43:58 11/14/19 25 11/13/2024 CBC W/ AUTOD IFF, COMPL ETE BLOOD COUNT RDW 15.0 % 11.0 - 15.0 Not Available [facility] [address] [place], [place] [address]y [address], [place], [address], 11/13/2024 15:43:58 11/14/19 25 11/13/2024 CBC W/ AUTOD IFF, COMPL ETE BLOOD COUNT nucleated RBC 0 % 0 - 2 Not Available [facility] [address] [place], [place] [address]y [address], [place], [address], 11/13/2024 15:43:58 11/14/19 25 11/13/2024 CBC W/ AUTOD IFF, COMPL ETE BLOOD COUNT platelet 223 K/uL 140 - 440 Not Available [facility] [address] [place], [place] [address]y [address], [place], [address], 11/13/2024 15:43:58 11/14/19 25 11/13/2024 CBC W/ AUTOD IFF, COMPL ETE BLOOD COUNT MPV 8.1 fL 7.4 - 10.4 Not Available [facility] [address] [place], [place] [address]y [address], [place], [address], 11/13/2024 15:43:58 11/14/19 25 11/13/2024 CBC W/ AUTOD IFF, COMPL ETE BLOOD COUNT neutrophil, percentage 70.3 % Not Available [facility] [address] [place], [place] [address]y [address] [place], [address], 11/13/2024 15:43:58 11/14/19 25 11/13/2024 CBC W/ AUTOD IFF, COMPL ETE BLOOD COUNT lymphocyte, percentage 13.1 % Not Available [facility] [address] [place], [place] [address]y [address], [place], [address], 11/13/2024 15:43:58 11/14/19 25 11/13/2024 CBC W/ AUTOD IFF, COMPL ETE BLOOD COUNT monocyte, percentage 10.4 % Not Available [facility] [address] [place], [place] [address]y [address], [place], [address], 11/13/2024 15:43:58 11/14/19 25 11/13/2024 CBC W/ AUTOD IFF, COMPL ETE BLOOD COUNT eosinophil, percentage 5.1 % Not Available [facility] [address] [place], [place] [address]y [address], [place], [address], 11/13/2024 15:43:58 11/14/19 25 11/13/2024 CBC W/ AUTOD IFF, COMPL ETE BLOOD COUNT basophil, percentage 1.1 % Not Available [facility] [address] [place], [place] [address]y [address], [place], [address], 11/13/2024 15:43:58 11/14/19 25 11/13/2024 CBC W/ AUTOD IFF, COMPL ETE BLOOD COUNT neutrophil, absolute 3.4 K/uL 1.5 - 7.5 Not Available [facility] [address] [place], [place] [address], [place], [address], 11/13/2024 15:43:58 11/14/19 25 11/13/2024 CBC W/ AUTOD IFF, COMPL ETE BLOOD COUNT lymphocyte, absolute 0.6 K/uL 0.8 - 4.0 low Not Available [facility] [address] [place], [place] [address], [place], [address], 11/13/2024 15:43:58 11/14/19 25 11/13/2024 CBC W/ AUTOD IFF, COMPL ETE BLOOD COUNT monocyte, absolute 0.5 K/uL 0.1 - 1.0 Not Available [facility] [address] [place], [place] [address], [place], [address], 11/13/2024 15:43:58 11/14/19 25 11/13/2024 CBC W/ AUTOD IFF, COMPL ETE BLOOD COUNT eosinophil, absolute 0.2 K/uL 0.1 - 1.0 Not Available [facility] [address] [facility] [address], [place], [address], 11/13/2024 15:43:58 11/14/19 25 11/13/2024 CBC W/ AUTOD IFF, COMPL ETE BLOOD COUNT basophil, absolute 0.1 K/uL 0.0 - 0.2 Not Available [facility] [address] [facility] [address] [place], [address], 11/13/2024 15:43:58 11/14/19 25 11/13/2024 MICRO ALBUM IN, RAND (UR/C REAT) urine albumin 14 mg/L <30 Not Available [facility] [address] [facility] [address] [facility], [place], [address], 11/13/2024 16:35:53 11/14/19 25 11/13/2024 MICRO ALBUM IN, RAND (UR/C REAT) creatinine, urine 65 mg/dL 20 - 320 Not Available [facility] [address] [facility] [address] [facility], [place], [address], 11/13/2024 16:35:53 11/14/19 25 11/13/2024 MICRO ALBUM IN, RAND (UR/C REAT) AC ratio 20.9 mg/g <30.0 Refer ence Inter vals: The Ameri can Diabe anatoly Assoc iatio n defin ition of moder ately incre ased urine album in urine spot colle ction (mcg/ mg creat inine ) is as follo ws: < 30 Joy l 30 - 229 Moder ately incre ased >= 300 Clini jeannette album inuri a For diagn ostic purpo ses resul ts shoul d alway s be asses sed in conju nctio n with the patie nt's medic al histo ry, clini jeannette exami natio n and other findi ngs. Not Available [facility] [address] [facility] [address] [facility], [place], [address], 11/13/2024 16:35:53 11/14/19 25 11/14/2024 CMP, COMPR EHENS GRACY METAB OLIC PANEL glucose 140 mg/dL 65-99 high Fasti ng refer ence inter leyda For someo ne witho ut known diabe anatoly, a gluco se value >125 mg/dL indic ates that they may have diabe anatoly and this shoul d be confi rmed with a follo w-up test. Not Available [facility] [address] [facility] [address], [place], [address], 11/14/2024 11:21:03 11/14/19 25 11/14/2024 CMP, COMPR EHENS GRACY METAB OLIC PANEL urea nitrogen (BUN) 37 mg/dL 7-25 high Not Available [facility] [address] [facility] [address] [place], [address], 11/14/2024 11:21:03 11/14/19 25 11/14/2024 CMP, COMPR EHENS GRACY METAB OLIC PANEL creatinine 1.95 mg/dL 0.70-1 .28 high Not Available [facility] [address] [facility] [address], [place], [address], 11/14/2024 11:21:03 11/14/19 25 11/14/2024 CMP, COMPR EHENS GRACY METAB OLIC PANEL eGFR 36 mL/mi n/1.7 3m2 > or = 60 low Not Available [facility] [address] [facility] [address], [place], [address], 11/14/2024 11:21:03 11/14/19 25 11/14/2024 CMP, COMPR EHENS GRACY METAB OLIC PANEL BUN/creatini ne ratio 19 (calc ) 6-22 normal Not Available [facility] [address] [facility] [address] [place], [address], 11/14/2024 11:21:03 11/14/19 25 11/14/2024 CMP, COMPR EHENS GRACY METAB OLIC PANEL sodium 137 mmol/ L 135-14 6 normal Not Available [facility] [address], [place], [address], 11/14/2024 11:21:03 11/14/19 25 11/14/2024 CMP, COMPR EHENS GRACY METAB OLIC PANEL potassium 5.6 mmol/ L 3.5-5. 3 high Not Available [facility] [address] [facility] [address], [place], [address], 11/14/2024 11:21:03 11/14/19 25 11/14/2024 CMP, COMPR EHENS GRACY METAB OLIC PANEL chloride 106 mmol/ L 98-110 normal Not Available [facility] [address], [place], [address], 11/14/2024 11:21:03 11/14/19 25 11/14/2024 CMP, COMPR EHENS GRACY METAB OLIC PANEL carbon dioxide 22 mmol/ L 20-32 normal Not Available [facility] [address], [place], [address], 11/14/2024 11:21:03 11/14/19 25 11/14/2024 CMP, COMPR EHENS GRACY METAB OLIC PANEL calcium 10.2 mg/dL 8.6-10 .3 normal Not Available [facility] [address] [facility] [address], [place], [address], 11/14/2024 11:21:03 11/14/19 25 11/14/2024 CMP, COMPR EHENS GRACY METAB OLIC PANEL protein, total 7.0 g/dL 6.1-8. 1 normal Not Available [facility] [address], [place], [address], 11/14/2024 11:21:03 11/14/19 25 11/14/2024 CMP, COMPR EHENS GRACY METAB OLIC PANEL albumin 4.7 g/dL 3.6-5. 1 normal Not Available [facility] [address] [facility] [address], [place], [address], 11/14/2024 11:21:03 11/14/19 25 11/14/2024 CMP, COMPR EHENS GRACY METAB OLIC PANEL globulin 2.3 g/dL_ (calc ) 1.9-3. 7 normal Not Available [facility] [address] [facility] [address], [place], [address], 11/14/2024 11:21:03 11/14/19 25 11/14/2024 CMP, COMPR EHENS GRACY METAB OLIC PANEL albumin/glob ulin ratio 2.0 (calc ) 1.0-2. 5 normal Not Available [facility] [address] [facility] [address], [place], [address], 11/14/2024 11:21:03 11/14/19 25 11/14/2024 CMP, COMPR EHENS GRACY METAB OLIC PANEL bilirubin, total 0.5 mg/dL 0.2-1. 2 normal Not Available [facility] [address] [facility] [address], [place], [address], 11/14/2024 11:21:03 11/14/19 25 11/14/2024 CMP, COMPR EHENS GRACY METAB OLIC PANEL alkaline phosphatase 65 U/L 35-144 normal Not Available [facility] [address] [facility] [address], [place], [address], 11/14/2024 11:21:03 11/14/19 25 11/14/2024 CMP, COMPR EHENS GRACY METAB OLIC PANEL AST 15 U/L 10-35 normal Not Available [facility] [address], [place], [address], 11/14/2024 11:21:03 11/14/19 25 11/14/2024 CMP, COMPR EHENS GRACY METAB OLIC PANEL ALT 13 U/L 9-46 normal Not Available [facility] [address] [facility] [address], [place], [address], 11/14/2024 11:21:03 11/14/19 25 11/14/2024 GGT GGT 53 U/L 3-70 normal Not Available [facility] [address] [facility] [address], [place], [address], 11/14/2024 11:21:04 11/14/19 25 11/14/2024 LIPID PANEL W/ CALCU LATED LDL cholesterol, total 155 mg/dL <200 normal Not Available [facility] [address] [place] [address] [address] [place], [address], 11/14/2024 11:21:06 11/14/19 25 11/14/2024 LIPID PANEL W/ CALCU LATED LDL HDL cholesterol 71 mg/dL > or = 40 normal Not Available [facility] [address] [facility] [address] [facility], [place], [address], 11/14/2024 11:21:06 11/14/19 25 11/14/2024 LIPID PANEL W/ CALCU LATED LDL triglyceride s 100 mg/dL <150 normal Not Available [facility] [address] [place] [address] [address] [place], [address], 11/14/2024 11:21:06 11/14/19 25 11/14/2024 LIPID PANEL W/ CALCU LATED LDL LDL-choleste rol 65 mg/dL _(jeannette c) normal Refer ence range : <100 Kaci able range <100 mg/dL for prima ry preve ntion ; <70 mg/dL for patie nts with CHD or diabe tic patie nts with > or = 2 CHD risk facto rs. LDL-C is now calcu lated using the Radha n-Hop kins calccarly garcía n, which is a valid ated novel quentino george welch acy than the Fried hunter equat ion in the estim ation of LDL-C . Radha collier SS et al. ARLEEN. 2013; 310(1 9): 2061- 2068 (http ://ed ucati on.Qu guillermoZEturf. com/f aq/FA Q164) Not Available [facility] [address], [place], [address], 11/14/2024 11:21:06 11/14/19 25 11/14/2024 LIPID PANEL W/ CALCU LATED LDL chol/HDLC ratio 2.2 (calc ) <5.0 normal Not Available [facility] [address] [facility] [address], [place], [address], 11/14/2024 11:21:06 11/14/19 25 11/14/2024 LIPID PANEL W/ CALCU LATED LDL non HDL cholesterol 84 mg/dL _(jeannette c) <130 normal For patie nts with diabe anatoly plus 1 major ASCVD risk facto r, treat ing to a non-H DL-C goal of <100 mg/dL (LDL- C of <70 mg/dL ) is consi ileana nevarezo n. Not Available [facility] [address], [place], [address], 11/14/2024 11:21:06 11/14/19 25 11/14/2024 MAGNE SIUM, SERUM magnesium 1.6 mg/dL 1.5-2. 5 normal Not Available [facility] [address], [place], [address], 11/14/2024 11:21:07 11/14/19 25 11/14/2024 VITAM IN B12 & FOLAT E vitamin B12 531 pg/mL 200-11 00 normal Not Available [facility] [address], [place], [address], 11/14/2024 11:21:08 11/14/19 25 11/14/2024 VITAM IN B12 & FOLAT E folate, serum 4.4 NG/mL low Refer ence Range Low: <3.4 Borde rline : 3.4-5 .4 Joy l: >5.4 Not Available [facility] [address], [place], [address], 11/14/2024 11:21:08 11/14/19 25 11/14/2024 VITAM IN D, 25-HY DROXY vitamin D,25-oh,tota l,ia 32 NG/mL 30-100 normal Vitam in D Statu s 25-OH Vitam in D: Defic iency : <20 ng/mL Insuf ficie ncy: 20 - 29 ng/mL Optim al: > or = 30 ng/mL For 25-OH Vitam in D testi ng on patie nts on D2-teran pplem entat ion and patie nts for whom quant itati on of D2 and D3 fract ions is requi red, the [facility] Ass[facility] eD(TM ) 25-OH VIT D, (D2,D 3), LC/MS /MS is recom jennifer d: order code 51280 (roel ents >2yrs ). See Note 1 Note 1 For addit ional infor elizabeth frey refer to http: //joy Lau gnost ics.c om/fa q/FAQ 199 (This link is being provi ded for infor jose oakley/ hill arriaga purpo ses only. ) Not Available [facility] [address], [place], [address], 11/14/2024 11:21:10 11/14/19 25 11/21/2024 VITAM IN B1 (THIA MINE) , BLOOD vitamin B1 (thiamine), blood, lc/MS/MS 106 nmol/ L 78-185 Vitam in suppl ement ation withi n 24 hours prior to blood draw may affec t the accur acy of the resul ts. This test was devel freddy and its lisa tical perfo rmanc e flaquita cteri stics have been deter mined by [facility] [place], [place]. It has not been clear ed or appro david by the U.S. Food and Drug Admin istra tion. This assay has been valid ated pursu ant to the CLIA regul ation s and is used for clini jeannette purpo ses. Not Available [facility] [address], [place], [address], 11/21/2024 06:13:43 11/14/19 25 11/13/2024 VENIP UNCTU RE results Compl ete Not Available [facility] [address], [place], [address], 11/13/2024 11:06:51 05/28/20 24 05/28/2024 compl ete PFT w/ post [facility] hodil ator leisa metry * No observ ation record ed. [email or web address] Not Available 2023 13:01:27 10/04/19 25 elect rocekta diogr am No observ ation record ed. Not Available 2024 13:34:26 Result Notes None recorded. Problems Name Problem SNOMED Code Status Onset Date Resolution Date Notes Provider Name and Address Organization Details Recorded Time Acute swimmer's ear Completed 202111/20/2024 Marybel Vu, ROBOT TECHNICIAN [address], [place], [address], [facility] - [facility], [employer] 5 10:35:52 Type 2 diabetes mellitus 93084978 Completed 202205/02/2024 Marybel Vu, ROBOT TECHNICIAN [address], [place], [address], [facility] - [facility], [facility] 4 08:03:33 Hypertens gracy disorder 61034644 Completed 202205/02/2024 Marybel Vu APRN [address], [place], [address], [facility] Physician [facility], [facility] 5 09:17:35 Dysfuncti on of eustachia n tube 24946067 Active 2022 Marybel Vu APRN [address], [place], [address], [facility] Phys[facility], [facility] 5 09:17:56 Benign essential hypertens ion 4081618 Active 2023 Marybel Vu APRN [address], [place], [address], [facility] Physician [facility], [facility] 5 09:17:45 Complicat ion due to diabetes mellitus 89138505 Active 2023 Marybel Vu APRN [address], [place], [address], [facility] Phys[facility], [facility] 5 09:17:38 Paroxysma l atrial fibrillat ion 432889549 Active 2023 Marybel Vu APRN [address], [place], [address], [facility], [facility] 5 09:17:24 Hyperlipi demia due to type 2 diabetes mellitus 875614317775 102 Active 2023 Marybel Vu APRN [address], [place], [address], [facility] Physician [facility], [facility] 5 09:17:30 Mild recurrent major depressio n 40163042 Active 2023 Marybel Vu APRN [address], [place], [address], [facility] Physician [facility], [facility] 5 09:17:27 Hypercoag ulability state 35333226 Active 2023 Marybel Vu APRN [address], [place], [address], [facility] Physician [facility], [facility] 5 09:17:28 Chronic kidney disease stage 3 due to type 2 diabetes mellitus 910860917454 Active 2023 Marybel Vu APRN [address], [place], [address], [facility] Physician [facility], [facility] 5 09:17:39 Benign prostatic hyperplas ia with outflow obstructi on 735669739 Active [address], [place], [address], [facility] Physician [facility], [facility] 5 09:17:44 Bilateral senile combined form cataracts of eyes [id number] 108 Completed 202308/26/[address], [place], [address], [facility] Physician [facility], [facility] 5 09:35:30 Obstructi ve sleep apnea syndrome 84235973 Active 2023 Marybel Vu APRN [address], [place], [address], [facility] Physician [facility], [facility] 5 09:17:25 Alcohol dependenc e 37600418 Active [address], [place], [address], [facility] Phys[facility], [facility] 5 09:17:42 Hypertens gracy disorder [id number] Completed 202308/26/2024 Marybel Vu APRN [address], [place], [address], [facility], [facility] 5 09:17:35 Bradycard ia [id number] Completed 202308/26/2024 Marybel Vu APRN [address], [place], [address], [facility], [facility] 5 09:17:15 Diabetes mellitus [id number] Completed 202308/26/2024 Marybel Vu APRN [address], [place], [address], [facility], [facility] 5 09:17:36 Cardiac pacemaker in situ [id number] Active 2024 Marybel Vu APRN [address], [place], [address], [facility], [facility] 5 09:35:11 Cataract due to diabetes mellitus type 2 [id number] Active [address], [place], [address], 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 Physician [facility], [facility] 5 10:35:54 Bilateral neural hearing loss 576411885 Active 2019 Marybel Vu APRN [address], [place], [address], [facility], [facility] 5 09:17:53 Impacted cerumen of bilateral ears [id number] Completed 201911/20/2024 Marybel Vu APRN [address], [place], [address], [facility], [facility] 10:35:51 Notes:Some problems listed i n Documents: #[id number], #[id number], #[id number] could not be added to this patient's chart. Please review these documents and add these problems to the patient's chart manually as needed. Problem Notes None recorded. Procedures Surgical History Date Name Laterality Status Provider Name and Address Organization Details Recorded Time 11/21/19 25 G2211 completed MARINA Mena [address], [place], [address], [facility], [employer] 11/20/2024 13:35:19 10/12/19 25 screening for occult blood in feces completed MD Kelsey Marie [address], [place], [address], [facility], [employer] 10/11/2024 10:41:11 10/04/19 25 Quality Advanced Care Planning completed MD Kelsey Marie [address], [place], [address], [facility], [employer] 10/02/2024 07:40:31 10/04/19 25 Quality Incontinence Screening completed MD Kelsey [address], [place], [address], [facility], [facility] 10/02/2024 07:40:31 10/04/19 25 Counseling: Advanced care planning completed MD Kelsey [address], [place], [address], [facility], [facility] 10/02/2024 07:41:30 10/04/19 25 G2211 completed MD Kelsey Marie [address], [place], [address], [facility] Physician [facility], [facility] 10/02/2024 07:41:14 10/04/19 25 Medicare AWV Initial Questionnaire completed MD [address], [place], [address], [facility], [facility] 10/02/2024 07:40:46 10/04/19 Medicare AWV Subsequent completed Blanche Godinez MD [address], [place], [address], [facility] Physician [facility], [facility] 10/02/2024 07:40:31 08/26/19 G2211 completed Marybel Vu APRN [address], [place], [address], [facility] Physician [facility], [facility] 08/26/2024 10:20:25 08/12/19 cardiac pacemaker procedure completed Marybel Vu APRN [address], [place], [address], [facility] Physician [facility], [facility] 08/26/2024 09:16:43 05/02/20 G2211 completed Marybel Vu APRN [address], [place], [address], [facility] Physician [facility], [facility] 05/02/2024 10:16:31 03/08/20 Diabetic Eye exam completed Marybel Vu APRN [address], [place], [address], [facility] Physician [facility], [facility] 05/02/2024 09:04:04 01/12/20 TCM Initial completed Urszula Malagon [facility], [facility] 01/12/2024 14:29:34 01/12/20 Quality TCM Medication Reconciliation completed CHELLY VELASCO APRN [address], [place], [address], [facility] Physician [facility], [facility] 01/11/2024 22:54:28 10/25/19 Cerumen Disimpaction Using instrumentation (PCP, WIC, Spec) completed Ella Fishman [facility], [facility] 10/25/2023 11:02:56 10/05/19 Quality Advanced Care Planning completed Blanche Godinez MD [address], [place], [address], [place] [facility], [facility] 09/30/2023 17:12:49 10/05/19 24 Quality Incontinence Screening completed Blanche Godinez MD [address], [place], [address], [facility] Physician [facility], [facility] 09/30/2023 17:12:49 10/05/19 24 Counseling: Advanced care planning completed Blanche Godinez MD [address], [place], [address], [facility] Physician [facility], [facility] 09/30/2023 17:18:35 10/05/19 24 Medicare AWV Initial Questionnaire completed Kain Ramos [facility], [facility] 10/05/2023 11:08:50 10/05/19 Medicare AWV Subsequent completed Blanche Godinez MD [address], [place], [address], [facility] Physician [facility], [facility] 09/30/2023 17:12:49 09/20/19 24 G2211 completed CHELLY VELASCO APRN [address], [place], [address], [facility] Physician [facility], [facility] 09/20/2023 12:13:47 04/26/20 23 Cerumen Disimpaction Using instrumentation (PCP, WIC, Spec) completed MD Kelsey Castro [address], [place], [address], [facility] Physician [facility], [facility] 04/26/2023 13:29:14 09/21/19 23 Cerumen Disimpaction Using instrumentation (PCP, WIC, Spec) completed MD Kelsey [address], [place], [address], [facility] Physician [facility], [facility] 09/20/2022 15:00:28 08/10/19 22 Cerumen Disimpaction Using instrumentation (PCP, WIC, Spec) completed Gomez Ambriz MD [address], [place], [address], [facility] Physician [facility], [facility] 08/10/2021 14:50:22 11/20/19 20 Cerumen Disimpaction Using instrumentation (PCP, [place], Spec) completed Gomez Ambriz MD [address], [place], [address], [facility], [facility] 11/20/2019 10:24:14 11/06/19 20 Cerumen Disimpaction Using instrumentation (PCP, [place], Spec) completed Gomez Ambriz MD [address], [place], [address], [facility], [facility] 11/06/2019 14:28:25 07/10/19 20 Colonoscopy completed Blanche Godinez MD [address], [place], [address], [facility], [facility] 10/05/2023 11:28:22 07/10/18 64 Appendectomy completed [facility], [facility] 09/06/2022 14:39:47 07/10/18 57 [facility]lectomy [facility] 09/06/2022 14:37:59 Joint replacement, other completed Key Hunter APRN [address], [place], [address], [facility], [facility] 09/12/2022 22:20:41 Vasectomy completed Key Hunter APRN [address], [place], [address], [facility], [facility] 09/12/2022 22:20:41 Pacemaker implantation completed Kain Ramos [facility], [facility] 10/03/2024 10:06:02 Imaging Results None recorded. Procedure Notes None recorded. Medical Equipment None Reported. Allergies Allergen ID Allergen Name Allergen Category Reaction Reaction Severity Criticality Documentation Date Start Date Code Code System Note Provider Name and Address Organization Details Recorded Time 1400151 No known allergy (situatio n) Not available other Not available Not available 08/26/2024 [id number] SNOMED Marybel Vu, MARINA [address], [place], [address], [facility] - [facility], [facility] 09:17:05 Medications Name Sig Start Date Stop Date Status Note LastModified by Organization Details LastModified Time celecoxib 200 mg capsule TAKE 2 CAPSULES THE NIGHT BEFORE SURGERY AND 1 CAPSULE THE MORNING OF SURGERY. AFTERWARD 1 CAP DAILY 09/06 completed Not Available Not Available Not Available fluoxetine 40 mg capsule TAKE 1 CAPSULE BY MOUTH EVERY DAY 09/06 completed Not Available Not Available Not Available doxycycline hyclate 100 mg capsule TAKE 1 CAPSULE BY MOUTH TWICE A DAY FOR 5 DAYS WITH FOOD STARTING THE NIGHT BEFORE SURGERY 09/19 completed Not Available Not Available Not Available ofloxacin 0.3 % eye drops INSTILL 1 DROP INTO LEFT EYE FOUR TIMES DAILY STARTING 3 DAYS PRIOR TO SURGERY 04/27 completed Not Available Not Available Not Available amiodarone 200 mg tablet Take 1 tablet every day by oral route. 08/26 completed Not Available Not Available Not Available metoprolol succinate ER 50 mg tablet,exte nded release 24 hr TAKE 1 TABLET BY MOUTH EVERY DAY 01/11 completed Not Available Not Available Not Available lisinopril 20 mg tablet TAKE 1 TABLET BY MOUTH EVERY DAY FOR 30 DAYS 11/20 completed Not Available Not Available Not Available ondansetron HCl 4 mg tablet TAKE 2 TABLETS BY MOUTH TWICE A DAY NEEDED FOR NAUSEA 09/06 completed Not Available Not Available Not Available cyanocobala min (vit B-12) 1,000 mcg tablet 100 ugs by oral route. active Not Available Not Available No t Available amoxicillin 500 mg tablet 09/06 completed Not Available Not Available Not Available ketorolac 0.5 % eye drops ADMINISTE R 1 DROP INTO THE LEFT EYE FOUR TIMES DAILY. START 3 DAYS BEFORE SURGERY 09/19 completed Not Available Not Available Not Available ciclopirox 8 % topical solution APPLY TO AFFECTED NAILS DAILY AND REMOVE WITH ACETONE ONCE A WEEK 01/11 completed Not Available Not Available Not Available pravastatin 80 mg tablet Take 1 tablet every day by oral route in the evening. 2024 active Not Available Not Available Not Avai lable prednisolon e acetate 1 % eye drops,suspe nsion ADMINISTE R 1 DROP INTO THE LEFT EYE ONCE DAILY. active Not Available Not Available No t Available propafenone 300 mg tablet Take 1 tablet every 8 hours by oral route. active Not Available Not Available No t Available tamsulosin 0.4 mg capsule TAKE 1 CAPSULE BY MOUTH EVERY DAY active Not Available Not Available No t Available amlodipine 5 mg-benazepr il 10 mg capsule Take 1 {capsule} by oral route. 08/26 completed Not Available Not Available Not Available amlodipine 10 mg tablet Take 1 tablet every day by oral route. 11/20 completed Not Available Not Available Not Available econazole nitrate 1 % topical cream 10/11 completed Not Available Not Available Not Available cephalexin 500 mg capsule TAKE 1 CAPSULE BY MOUTH EVERY 8 HOURS START 07-16-23 FOR 824 CYSTOSCOP Y 08/26 completed Not Available Not Available Not Available erythromyci n 5 mg/gram (0.5 %) eye ointment APPLY TO LEFT EYE THREE TIMES DAILY. APPLY: 0.25 INCH (~0.5 CM) PER DOSE. 09/19 completed Not Available Not Available Not Available metformin 1,000 mg tablet TAKE 1 TABLET BY MOUTH TWICE A DAY 2024 active Not Available Not Available Not Avai lable Cipro 500 mg tablet Take 1 tablet twice a day by oral route. 04/13 completed Not Available Not Available Not Available polymyxin B sulfate 10,000 unit-trimet hoprim 1 mg/mL eye drops 10/11 completed Not Available Not Available Not Available betamethaso ne dipropionat e 0.05 % topical cream Apply 1 applicati on twice a day by topical route. 11/20 completed Not Available Not Available Not Available clobetasol 0.05 % topical ointment APPLY TO AFFECTED AREA ON BODY TWICE A DAY FOR 2 WEEKS THEN STOP NEEDED FOR FLARES active Not Available Not Available No t Available lisinopril 40 mg tablet Take 1 tablet every day by oral route. active Not Available Not Available No t Available fluticasone propionate 50 mcg/actuati on nasal spray,suspe nsion INSTILL 2 SPRAYS BY INTRANASA L ROUTE EVERY DAY 09/19 completed Not Available Not Available Not Available nabumetone 500 mg tablet 09/06 completed Not Available Not Available Not Available oxycodone 5 mg tablet TAKE 1 TO 2 TABLETS BY MOUTH EVERY 4 TO 6 HOURS 09/06 completed Not Available Not Available Not Available neomycin-po lymyxin-hyd rocort 3.5 mg-10,000 unit/mL-1 % ear drops,susp 04/27 completed Not Available Not Available Not Available ciclopirox 0.77 % topical cream APPLY TO AFFECTED AREA EXTERNALL Y TO FEET TWICE A DAY 11/20 completed Not Available Not Available Not Available dutasteride 0.5 mg capsule TAKE 1 CAPSULE BY MOUTH EVERY DAY active Not Available Not Available No t Available metformin ER 750 mg tablet,exte nded release 24 hr 04/13 completed Not Available Not Available Not Available bupropion HCl XL 150 mg 24 hr tablet, extended release 04/27 completed Not Available Not Available Not Available propafenone ER 225 mg capsule,ext ended release 12 hr TAKE 1 CAPSULE BY MOUTH EVERY 12 HOURS 11/20 completed Not Available Not Available Not Available metformin ER 1,000 mg tablet,exte nded release 24hr (osmotic) Take 1000 mg by oral route. 08/26 completed Not Available Not Available Not Available magnesium OTC 250MG - 2 TABS PO DAILY active Not Available Not Available No t Available testosteron e OTC- ONE PO BID 04/27 completed Not Available Not Available Not Available Imodium A-D TAKES PO PRN( 4 X WEEK) 01/11 completed Not Available Not Available Not Available multivitami n MENS- ONE PO DAILY active Not Available Not Available No t Available Vitamin B12 1000MCG PO DAILY active Not Available Not Available No t Available Januvia 100 mg tablet 04/13 completed Not Available Not Available Not Available Xarelto 15 mg tablet TAKE 1 TABLET BY MOUTH EVERY DAY 11/20 completed Not Available Not Available Not Available Xarelto 20 mg tablet Take 20 mg by oral route. 08/26 completed Not Available Not Available Not Available Fiber (psyllium husk) ONE CAP PO DAILY active Not Available Not Available No t Available Eliquis 2.5 mg tablet TAKE 1 TABLET BY MOUTH TWICE A DAY FOR 30 DAYS AFTER SURGERY 09/06 completed Not Available Not Available Not Available Fluzone High-Dose 2019-20 (PF) 180 mcg/0.5 mL intramuscul ar syringe 10/11 completed Not Available Not Available Not Available Ozempic 1 mg/dose (4 mg/3 mL) subcutaneou s pen injector INJECT 1MG SUBCUTANE OUSLY EVERY WEEK DIRECTED 01/11 completed Not Available Not Available Not Available BinaxNOW COVID-19 Ag Self Test kit USE DIRECTED 04/13 completed Not Available Not Available Not Available Ozempic 0.25 mg or 0.5 mg (2 mg/3 mL) subcutaneou s pen injector INJECT 0.5 MG SUBCUTANE OUSLY EVERY WEEK 11/05 completed Not Available Not Available Not Available Vitals Date Recorded Body height Body mass index (BMI) Body weight Body temperature Heart rate Respiratory rate Oxygen saturation Oxygen saturation in Arterial blood by Pulse oximetry Systolic blood pressure Diastolic blood pressure Provider Name and Address Organization Details Last Updated DateTime 5 162.56 cm 30 kg/m2 47540.6 6 g 97.2 [degF] 82 /min 16 /min 98 % 98 % 124 mm[Hg] 62 mm[Hg] [facility], [facility] 5 09:30:35 Date Recorded Body height Body mass index (BMI) Body weight Body temperature Heart rate Respiratory rate Oxygen saturation Oxygen saturation in Arterial blood by Pulse oximetry Systolic blood pressure Diastolic blood pressure Provider Name and Address Organization Details Last Updated DateTime 5 162.56 cm 31.1 kg/m2 23372.2 2 g 97.6 [degF] 88 /min 16 /min 98 % 98 % 132 mm[Hg] 80 mm[Hg] [facility], [facility] 5 10:04:27 Date Recorded Body height Body mass index (BMI) Body weight Body temperature Heart rate Respiratory rate Oxygen saturation Oxygen saturation in Arterial blood by Pulse oximetry Systolic blood pressure Diastolic blood pressure Provider Name and Address Organization Details Last Updated DateTime 5 162.56 cm 29.5 kg/m2 26811.4 5 g 97.3 [degF] 91 /min 16 /min 99 % 99 % 122 mm[Hg] 70 mm[Hg] [employer] [facility], [facility] 5 10:32:37 Date Recorded Body height Provider Name an d Address Organization Details Last Updated DateTime 01/12/2024 162.56 cm Urszula Malagon [facility] Physician [facility], [facility] 01/12/2024 12:18:06 Date Recorded Body height Body mass index (BMI) Body weight Body temperature Heart rate Respiratory rate Oxygen saturation Oxygen saturation in Arterial blood by Pulse oximetry Systolic blood pressure Diastolic blood pressure Provider Name and Address Organization Details Last Updated DateTime 4 162.56 cm 30.9 kg/m2 63578.3 5 g 97.7 [degF] 70 /min 16 /min 99 % 99 % 118 mm[Hg] 60 mm[Hg] Angelgopal [facility] Physician [facility], [facility] 4 08:57:02 Social History Question Answer Notes LastModified by Organizat ion Details LastModified Time Tobacco Smoking Status Never Smoker Urszula Malagon [facility], [facility] 09/06/2022 14:34:12 Do You Have An Advance Directive? Yes [email or web address] Information n ot available 09/12/2022 Is Your Home Air Conditioned? Yes [email or web address] Information not available 09/20/2022 Are You Currently Sexually Active With Anyone Who Has Traveled (within The Last 12 Weeks) To A Zika-affected Area? No [email or web address] Information not available 09/20/2022 Do You Wear A Helmet When Biking? No [email or web address] Information not available 09/20/2022 Is Blood Transfusion Acceptable In An Emergency? Yes Information not available 09/06/2022 What Is Your Level Of Caffeine Consumption? Moderate Information not available 09/06/2022 In The 14 Days Before Symptom Onset, Have You Had Close Contact With A Laboratory-confirm ed COVID-19 While That Case Was Ill? No [email or web address] Information n ot available 09/20/2022 In The 14 Days Before Symptom Onset, Have You Had Close Contact With A Person Who Is Under Investigation For COVID-19 While That Person Was Ill? No [email or web address] Information not available 09/20/2022 Have You Been To An Area Known To Be High Risk For COVID-19? No [email or web address] Information not available 09/20/2022 What Type Of Diet Are You Following? REGULAR Information n ot available 09/06/2022 Have You Processed Blood Or Body Fluids From An Ebola Virus Disease Patient Without Appropriate PPE? No [email or web address] Information not available 09/20/2022 Do You Reside In Or Have You Traveled To An Area Where Ebola Virus Transmission Is Active? No [email or web address] Information not available 09/20/2022 Do You Have An Electrostatic Air Filter? Yes [email or web address] Information not available 09/20/2022 Have There Been Any Changes To Your Family Or Social Situation? No [email or web address] Information no t available 09/20/2022 What Is The Fluoride Status Of Your Home? Unknown [email or web address] Information not available 09/20/2022 Are There Any Guns Present In Your Home? No [email or web address] Information not available 09/20/2022 Which Of Your Hands Is Dominant? Right [email or web address] Information n ot available 09/20/2022 Do You Have A Humidifier? Yes [email or web address] Information not available 09/20/2022 Where Do You Live? Condo [email or web address] Inform ation not available 09/20/2022 Marital Status [email or web address] Informatio n not available 09/20/2022 Do You Have A Medical Power Of Parachute Mender? Yes [email or web address] Information not available 09/20/2022 What Was The Date Of Your Most Recent Tobacco Screening? 11/20/2024 Information not available 11/20/2024 How Many Children Do You Have? 3 [email or web address] Information not available 09/20/2022 What Is Your Relationship Status? [email or web address] Information not available 08/10/2021 Do You Use Your Seat Belt Or Car Seat Routinely? Yes [email or web address] Information not available 09/20/2022 Are You Sexually Active? Yes [email or web address] Information not available 09/12/2022 Do You Have Smoke And Carbon Monoxide Detectors In Your Home? Yes [email or web address] Information not available 09/20/2022 Are You Passively Exposed To Smoke? No [email or web address] Information no t available 09/20/2022 Are There Any Smokers In Your House? No [email or web address] Information not available 09/20/2022 Do You Use Sunscreen Routinely? Yes [email or web address] Information not available 09/20/2022 Do You Have Any Dietary Restrictions? No [email or web address] Information not available 09/20/2022 Sex: Male Functional Status Question Answer Note LastModified by Organizat ion Details LastModified Time How many times per week do you consume alcohol? 5-7 times per week [email or web address] Information not available 09/20/2022 Do you use any illicit or recreational drugs? No [email or web address] Information not available 09/20/2022 Do you or have you ever used any other forms of tobacco or nicotine? No [email or web address] Information not available 08/26/2024 What is your level of alcohol consumption? Moderate Information not available 09/06/2022 Do you or have you ever used smokeless tobacco? Never used smokeless tobacco [email or web address] Information not available 09/12/2022 Are you currently employed? RETIRED [email or web address] Information not available 09/20/2022 Have you been exposed to chemicals or toxins? No [email or web address] Information not available 09/20/2022 Do you have transportation difficulties? No [email or web address] Information not available 09/20/2022 Are you able to care for yourself? Yes [email or web address] Information n ot available 09/20/2022 What is your exercise level? Moderate [email or web address] Information not available 10/05/2023 Mental Status None recorded. Family History Relationship Description Onset Age of this Age Resolved Age Notes LastModified by Organization Details LastModified Time Mother Atrial fibrillation [email or web address] Not available 0 11/06/2019 14:15:51 Mother Arthritis [email or web address] Not avail able 11/06/2019 14:15:51 Mother Mother 88 KDINEY FAILUR E [email or web address] Not available 11/20/2024 10:22:21 Mother Chronic renal failure [email or web address] Not available 2024 10:22:21 Sister Diabetes mellitus [email or web address] Not available 10/09 14:15:51 Father Mother 83 MISLTH EMIOMA [email or web address] Not available 11/20/2024 10:22:21 Father Malignant lymphoma [email or web address] Not available 2024 10:22:21 Medical History Condition Response Coronary Artery Disease N Cancer (location) N Other Y Gout N Kidney Stones N Measles/Mumps Y Arthralgia N Vomiting N Yeast Infection N Sexually Transmitted Disease N Depression N Blood Clots N Wheezing N Pneumonia N Prostate Problems Y Parkinson's N Paralysis N Headaches/Migraines N Cardiac Pacemaker/defibrillator N Dizziness N Arthritis N Infertility N Night Sweats N Artificial Joint N Blood in Stool N Crohn's Disease N HIV/AIDS N Stroke/TIA N Kidney Disease N Hiatal Hernia N High blood pressure Y Gallbladder disease N Weight Loss N Blood Thinner Treatment N Alcohol Overuse N Gallstones N Hypogonadism N Nervous Breakdown N Gilbert's Esophagus N Muscle Aches N Urinary Problems N Nausea N Gastritis N Back pain N Rheumatic Fever N Bleeding Disorder N Osteopenia/Osteoporosis N inflammation of vein N Asthma N Ostomies (location) N Seizures N Swelling/Edema N Jaundice N Hepatitis N Past Reacton to [employer] N Cirrhosis N Chicken Pox Y Allergies (other than meds) N Thyroid Disease N Diarrhea N Emphysema/COPD N Lung Disease N Vascular Disease N Rash/Skin Condition N Amputation (location) N Nerve Damage / Neuropathy N Blood in Urine N Sleep disorder/Insomnia N Heart disease / Heart Attack N Shortness of Breath N High Cholesterol Y Colon Problems N Serious Injuries N Dialysis N Leg Cramping N Memory Loss/Alzheimer's N Chronic Cough N Fever/Chills N Congestive heart failure N Falls N Hormone Replacement N Diabetic Eye Disease N Anemia N Chest Pain N Colon Polyps N Hospitalizations (other than operations) N Diabetes Y Cardiac Arrhythmias /irregular heart rat e N Heart Murmur N Phlebitis N Anxiety/Stress N Vision Problems N Erectile / Sexual Dysfunction N Epilepsy N Morning Cough N Sleep Apnea N Fainting N GERD/Ulcer N Bronchitis N Immunizations Vaccine Type Date Status Note Provider Nam e and Address Organization Details Recorded Time SARS-COV-2 (COVID-19) vaccine, UNSPECIFIED 0 completed Not Available [facility] 02/20/2023 02:09:50 SARS-COV-2 (COVID-19) vaccine, UNSPECIFIED 0 completed Not Available [facility] 02/20/2023 02:09:50 SARS-COV-2 (COVID-19) vaccine, UNSPECIFIED 1 completed Not Available [facility] 02/20/2023 02:09:50 SARS-COV-2 (COVID-19) vaccine, UNSPECIFIED 2 completed Not Available [facility] 02/20/2023 02:09:50 pneumococcal, unspecified formulation 1 completed Not Available [facility] 02/20/2023 02:09:50 influenza nasal, unspecified formulation 2 completed Not Available [facility] 02/20/2023 02:09:50 Influenza, high-dose, quadrivalent, PF 1 completed Linda Keen [facility], [facility] 09/12/2022 09:47:54 COVID-19, mRNA, LNP-S, PF, 100 mcg/0.5mL dose or 50 mcg/0.25mL dose 1 completed Linda Keen [facility], [facility] 09/12/2022 09:47:55 COVID-19, mRNA, LNP-S, PF, 100 mcg/0.5mL dose or 50 mcg/0.25mL dose 1 completed Linda Pappass [facility], [facility] 09/12/2022 09:47:55 Influenza, high-dose, trivalent, PF 9 completed Linda Keen [facility], [facility] 09/12/2022 09:47:55 COVID-19, mRNA, LNP-S, PF, pierre-sucrose, 30 mcg/0.3 mL 3 completed Urszula Malagon [facility], [facility] 09/20/2023 11:32:59 RSV, recombinant, protein subunit RSVpreF, adjuvant reconstituted, 0.5 mL, PF 4 completed Iveth Rosas [facility] 08/26/2024 09:24:51 Influenza, high-dose, trivalent, PF 4 completed [facility] 08/26/2024 09:24:51 Past Encounters Encounter ID Performer Location Encounter Start Date Encounter Closed Date Diagnosis/Indication Diagnosis SNOMED-CT Code Diagnosis ICD10 Code Diagnosis Note [id number] Gomez Ambriz MD [address] 140,[address] [address] 11/06/2019 13:54:19 11/06/2019 14:31:42 Impacted cerumen of bilateral ears [id number] 862667 H61.23 Otitis externa 0108847 H 60.13 [id number] MD VASQUEZ Castro [place] [id number] [facility] [address] [place] [address],[place] [address] 11/20/2019 10:01:53 11/20/2019 10:24:23 Bilateral neural hearing loss 360336884 H90.3 Impacted c erumen of bilateral ears 4464457513 466897 H61.23 [id number] Gomez Ambriz MD [address] [place] [address] 2 08/10/2021 13:57:14 08/10/2021 14:52:40 Bilateral neural hearing loss 719571487 H90.3 Impacted c erumen of bilateral ears 2402428809 740529 H61.23 Acute swimmer's ear 1941 [address] H60.391 [id number] Gomez Ambriz MD [address] [place] [address] 2 08/24/2021 15:22:41 08/24/2021 15:49:01 Bilateral neural hearing loss 643350515 H90.3 Acute swimmer's ear 1941 [address] H60.391 [id number] Gomez Ambriz MD [address] [place] [address] 2 08/24/2021 15:39:02 08/24/2021 16:00:49 Bilateral neural hearing loss 786206599 H90.3 [id number] CHELLY VELASCO APRN [address] [address] 09/06/2022 14:03:48 09/06/2022 15:03:16 Benign essential hypertension 2590525 I10 Chronic, stable, cont. to monitor and adjust accordingl y to meet goals Mild recur rent major depression 29357117 F33.0 Chronic, stable, continue current medication regimen, follow up as scheduled Atrial fibrillation 4943 6004 I48.91 Chronic, stable, continue current medication regimen, follow up as scheduled Hypercoagu lability state 39838921 D68.69 chronic, Due to a-fib, cont eliquis 2.5 mg BID, stable, cont to monitor Complicati on due to diabetes mellitus 13338321 E13.59 Chronic, stable, continue current medication regimen, follow up as scheduled Hyperlipidemia 02595343 E78.5 Chronic, unknown control, ck labs, cont rx , follow for progressio n and adjust accordingl y to meet goals Body mass index 30+ - obesity 810968078 E66.9 Z68.33 weight issues discussed and informatio n on weight loss given. Needs follow up on weight control as scheduled. Education handout on diets given. Exercise counseling done. Will arrange referral for dietitian, nutritioni st, Physical/o ccupationa l therapy as needed or desired. Also will consider pharmaceut ical and supplement al interventi ons Obesity 471042648 E66.9 see BMI above for details Diet education 87893047 Z71.3 as above [id number] Key Hunter APRN [address] [address] 09/12/2022 09:13:10 09/12/2022 10:11:56 Lower urinary tract symptoms 094427763 R39.9 Acute symptoms, unstable - requires treatmentU rine dipstick shows trace blood. Increase water and reduce caffeine. Cipro BID 500 mg x 7 days. Send U/C and contact with results when available. If no improvemen t in symptoms contact the office prior to hearing about the culture results. Body mass index 30+ - obesity 076880223 E66.9 Z68.33 weight issues discussed and informatio n on weight loss given. Needs follow up on weight control as scheduled. Education handout on diets given. Exercise counseling done. Will arrange referral for dietitian, nutritioni st, Physical/o ccupationa l therapy as needed or desired. Also will consider pharmaceut ical and supplement al interventi ons Obesity 653302990 E66.9 see BMI above for details Diet education 57776339 Z71.3 as above Screening for malignant neoplasm of prostate 529325482 Z12.5 Requesting PSA with next lab draw. [id number] Gomez Ambriz MD [address], [address] [place] [address] 09/20/2022 14:30:48 09/20/2022 15:55:21 Bilateral neural hearing loss 154179270 H90.3 His hearing test demonstrat es midline high-frequ ency loss bilaterall y. Impacted c erumen of bilateral ears 6978111070 574060 H61.23 Both ears feel better with cleaning. Dysfunctio n of eustachian tube 60184814 H68.022 His tympanogra m is negative on the right. I am going to place him on Flonase. [id number] CHELLY VELASCO APRN [place] [address] [address] 10/11/2022 10:49:55 10/11/2022 11:26:34 Body mass index 30+ - obesity 466985180 Z68.32 weight issues discussed and informatio n on weight loss given. Needs follow up on weight control as scheduled. Education handout on diets given. Exercise counseling done. Will arrange referral for dietitian, nutritioni st, Physical/o ccupationa l therapy as needed or desired. Also will consider pharmaceut ical and supplement al interventi ons Obesity 332125808 E66.9 see BMI above for details Diet education 83700827 Z71.3 as above Benign ess ential hypertension 7176645 I10 Chronic, stable, cont. to monitor and adjust accordingl y to meet goals Complicati on due to diabetes mellitus 75477526 E13.59 Chronic, stable, continue current medication regimen, follow up as scheduled Hyperlipidemia 41736534 E78.5 Chronic problem, stable - at or near LDL goal. Needs monitoring . Prescripti on drug management : Continue medication s as in med list. med dose sig Plan of care: Continue therapeuti c lifestyle changes and/or medication s to maintain an LDL below 100. Periodic visits and labs and appropriat e therapeuti c changes will occur to help meet this goal to minimize risk of atheroscle rotic disease. Recheck labs as ordered. Mild recur rent major depression 55884091 F33.0 Chronic, stable, continue current medication regimen, follow up as scheduled Atrial fibrillation 8418 0697 I48.91 Chronic, stable, continue current medication regimen, follow up as scheduled Hypercoagu lability state 84705866 D68.69 chronic, Due to a-fib, cont eliquis 2.5 mg BID, stable, cont to monitor Prostate s pecific antigen above reference range 439220669 R97.20 acute, unstable, has appt with dr haas 10/13/22 Renewal of prescription 516244796 Z76.0 [id number] Gomez Ambriz MD [facility] [address] [place] [address] 04/26/2023 13:23:49 04/26/2023 13:53:14 Bilateral neural hearing loss 844625461 H90.3 We have reviewed his hearing test from September. His hearing test demonstrat es midline high-frequ ency loss bilaterall y. Impacted c erumen of bilateral ears 3805446776 101219 H61.23 Both ears feel better with cleaning. [id number] CHELLY VELASCO APRN [facility] [address] [place] [address] 04/27/2023 13:55:52 04/27/2023 14:36:46 Body mass index 30+ - obesity 697184737 E66.9 Z68.33 weight issues discussed and informatio n on weight loss given. Needs follow up on weight control as scheduled. Education handout on diets given. Exercise counseling done. Will arrange referral for dietitian, nutritioni st, Physical/o ccupationa l therapy as needed or desired. Also will consider pharmaceut ical and supplement al interventi ons Obesity 192323668 E66.9 see BMI above for details Diet education 34784340 Z71.3 as above Benign ess ential hypertension 5390440 I10 Chronic, stable, cont. to monitor and adjust accordingl y to meet goals Complicati on due to diabetes mellitus 68751155 E13.59 Chronic, stable, continue current medication regimen, follow up as scheduled Hyperlipidemia 92139477 E78.5 Chronic problem, stable - at or near LDL goal. Needs monitoring .Prescript ion drug management : Continue medication s as in med list. med dose sigPlan of care: Continue therapeuti c lifestyle changes and/or medication s to maintain an LDL below 100. Periodic visits and labs and appropriat e therapeuti c changes will occur to help meet this goal to minimize risk of atheroscle rotic disease.Re check labs as ordered. Mild recur rent major depression 59037943 F33.0 Chronic, stable, continue current medication regimen, follow up as scheduled Atrial fibrillation 4943 6004 I48.91 Chronic, stable, continue current medication regimen, follow up as scheduled Hypercoagu lability state 38160829 D68.69 chronic, Due to a-fib, cont eliquis 2.5 mg BID, stable, cont to monitor Renewal of prescription 669342501 Z76.0 [id number] MARINA WU REPLACED BY [facility] [address] [place] [address] 09/20/2023 10:37:34 09/20/2023 12:15:13 Body mass index 30+ - obesity 215874465 E66.9 Z68.33 weight issues discussed and informatio n on weight loss given. Needs follow up on weight control as scheduled. Education handout on diets given. Exercise counseling done. Will arrange referral for dietitian, nutritioni st, Physical/o ccupationa l therapy as needed or desired. Also will consider pharmaceut ical and supplement al interventi ons Obesity 098461485 E66.9 see BMI above for details Diet education 26530158 Z71.3 as above Benign ess ential hypertension 7863321 I10 Chronic, stable, cont. to monitor and adjust accordingl y to meet goals Complicati on due to diabetes mellitus 39409522 E13.59 Chronic, stable, continue current medication regimen, follow up as scheduled Hyperlipidemia 03855336 E78.5 Chronic problem, stable - at or near LDL goal. Needs monitoring .Prescript ion drug management : Continue medication s as in med list. med dose sigPlan of care: Continue therapeuti c lifestyle changes and/or medication s to maintain an LDL below 100. Periodic visits and labs and appropriat e therapeuti c changes will occur to help meet this goal to minimize risk of atheroscle rotic disease.Re check labs as ordered.du e to DM Mild recur rent major depression 35500026 F33.0 Chronic, stable, continue current medication regimen, follow up as scheduled Atrial fibrillation 4943 6004 I48.91 Chronic, stable, continue current medication regimen, follow up as scheduled Hypercoagu lability state 48654868 D68.69 chronic, Due to a-fib, cont eliquis 2.5 mg BID, stable, cont to monitor Type 2 brianne betes mellitus 08455964 E11.69 Chronic, stable, continue current medication regimen, follow up as scheduled [id number] Blanche Godinez MD [facility] [address] [place] [address] 10/05/2023 10:55:06 10/05/2023 11:46:48 Adult health examination 279909734 Z00.00 Medicare Annual Wellness Visit done today. Advance care planning 71 6525514 Z71.89 Screening for malignant neoplasm of colon 507963431 Z12.11 Benign ess ential hypertension 7677949 I10 chronic, stable, cont. meds and diet and exercise and adjust to meet goals, recheck as scheduled Screening for cancer 158 [address]274 Z12.5 Obesity 684043022 E66.9 Weight issues discussed and informatio n on weight loss given. Needs follow up on weight control as scheduled. Chronic, Stable Body mass index 30+ - obesity 100661677 Z68.31 [id number] Gomez Ambriz MD [facility] [address] [place] [address] 10/25/2023 10:57:43 10/25/2023 11:22:04 Bilateral neural hearing loss 198937950 H90.3 We have reviewed his hearing test from last September. His hearing test demonstrat es midline high-frequ ency loss bilaterall y. Impacted c erumen of bilateral ears 8854555086 674513 H61.23 Both ears feel better with cleaning. [id number] CHELLY VELASCO APRN [facility] [address] [place] [address] 01/12/2024 07:36:25 01/13/2024 11:21:03 Colitis 82079337 K52.9 acute, stabilized in hospital, course of antibiotic s completed, continue hydration and f/up as directed Retention of urine 73423 4002 R33.9 acute, unable to void in hospital and catheter placed, needs referral to Urology [facility] -will consult Urology in [facility]. referral placed Dehydration 56280066 E86 .0 acute, stabilized in hospital, will continue hydration and f/up as scheduled Paroxysmal atrial fibrillation 470367645 I48.0 acute on chronic, unstable, has appt up [place] with EP in [facility]. had recent cardiovers ion with dr dye in 11/30. started on xarelto- will continue regime and f/up with EP cardiology in [place]- has appt. [id number] Marybel Vu, [employer] [address] [address] 05/02/2024 08:44:06 05/02/2024 09:50:29 Benign essential hypertension 2815544 I10 Chronic, stable. Continue amlodipine 5 mg benazepril 10 mg daily. Continue healthy diet and exercise as tolerated. Continue to follow with cardiology for management . Monitor with OV as scheduled. Paroxysmal atrial fibrillation 717432774 I48.0 Chronic, stable. Patient has been doing well since cardiovers ion in November. Continue to follow with cardiology both in [place] and [facility]. [facility] would like patient to have PFT and sleep apnea workup, ordered below. Continue xarelto 15mg daily. Follow-up as scheduled Hyperlipid emia due to type 2 diabetes mellitus 0038922371 82556 E78.5 Chronic, stable. Continue pravastati n 80 mg daily. Continue healthy diet and exercise as tolerated. Follow-up with labs as scheduled in 4 months. Complicati on due to diabetes mellitus 96445118 E11.8 Chronic, stable. Off Ozempic in December and A1c still steady at A1c 6.7. Continue metformin ER 1000mg daily. Discussion on dietary changes to make, avoidance of carbs and sugars. Patient with daily alcohol use, discussion on cutting back or complete cessation to improve diabetes and kidney health. Continue to follow-up with labs as scheduled in 4 months. Hypercoagu lability state 65536196 D68.59 Chronic, stable. Due to atrial fibrillati on needing Xarelto. No active signs or symptoms of bleeding. Monitor with visits as scheduled Chronic ki dney disease stage 3 due to type 2 diabetes mellitus 6283704548 05 N18.32 Chronic, stable. GFR 53. Continue to follow with nephrology as scheduled in June. Encouraged hydration and avoidance of nephrotoxi c meds. Discussion on cessation or cutting back on alcohol use for kidney health. Repeat with labs as scheduled in 4mo. Benign pro static hyperplasia with outflow obstruction 104173740 N40.1 chronic, stable. following w urology. cont. tamsulosin 0.4mg daily & dutasterid e 0.5mg daily. PSA improving. Will send copies to [place] and [facility] urologist. Continue to monitor as scheduled. Bilateral senile combined form cataracts of eyes 9701021009 22989 H25.813 Chronic, stable. Patient following with ophthalmol giancarlo having remainder of cataract procedure done in a few months. Continue to follow with [facility] specialist . Obstructiv e sleep apnea syndrome 54553541 G47.33 Chronic, stable. Patient no longer wearing CPAP. Monitoring his sleep nightly via Apple Watch. Cardiologi st would like SUSU workup and PFTs completed for atrial fibrillati on management . Referral to pulmonolog ist placed. Continue to monitor with specialist recommenda tions. Alcohol dependence 25694 003 F10.20 chronic, unstable. pt w daily drinking : 1 glass of wine, 2 scotch nightly.Di scussion on importance of limiting alcohol intake or complete cessation in relation to diabetic and kidney health, along with control of atrial fibrillati on. Patient would like to cut back and has done in the past, most recently stopped for 1 months during hospitaliz ation in November. Provided handouts for patient, recommende d AA meetings or support groups. Continue to follow with visits as scheduled. [id number] MARINA Mena [address] [address] 08/26/2024 09:19:18 08/26/2024 10:01:17 Counseling 230325130 Z71.9 Patient received [facility] Value Based Patient Guide today. Complicati on due to diabetes mellitus 86894180 E11.8 Chronic, stable. improved A1C 6.0, prior 6.7.Contin ue metformin ER 1000mg bid. prior w januvia & ozempic - off December 2023.Discu ssion on continued dietary changes to make, avoidance of carbs and sugars. Patient with daily alcohol use, discussion on cutting back or complete cessation to improve diabetes and kidney health. Continue to follow-up with labs as scheduled in 4 months. Hyperlipid emia due to type 2 diabetes mellitus 4977127266 93164 E78.5 Chronic, stable. Continue pravastati n 80 mg daily. Continue healthy diet and exercise as tolerated. Follow-up with labs as scheduled in 4 months. Chronic ki dney disease stage 3 due to type 2 diabetes mellitus 3343732327 05 N18.31 Chronic, unstable. worsening GFR 49. possibly secondary to procedure, labs drawn 3 days after. repeat renal panel in 3-4 weeks.rece ntly w stopped MUKUL inhibitor in Jun., increased amlodipine for BP control & kidney health.Con jesusue to follow with nephrology , [facility].E ncouraged hydration and avoidance of nephrotoxi c meds. Discussion on cessation or cutting back on alcohol use for kidney health. Repeat with labs as scheduled. Benign ess ential hypertension 1807191 I10 Chronic, variable. recently off benazepril in Jun d/t kidney function. pt notes elevated BP in am up to 180-190s/1 00s. advised to try amlodipine 5mg bid vs 10mg at once for full 24hour coverage. advised if bp remains elevated needing to seek cardiology for management sooner than November- pt relayed understand ing. Continue amlodipine 10 mg.Continu e healthy diet and exercise as tolerated. Monitor with OV as scheduled. Paroxysmal atrial fibrillation 951446473 I48.0 Chronic, stable. Patient has been doing well since cardiovers ion in November & Pacer placed 2 weeks ago.Contin ue to follow with cardiology both in [place] and [facility] tts. Continue xarelto 15mg daily. Follow-up as scheduled. Hypercoagu lability state 47604765 D68.59 Chronic, stable. Due to atrial fibrillati on & pacer needing Xarelto. No active signs or symptoms of bleeding. Monitor with visits as scheduled Benign pro static hyperplasia with outflow obstruction 853858738 N40.1 chronic, stable. following w urology. cont. tamsulosin 0.4mg daily & dutasterid e 0.5mg daily. Pending MRI prostate now that he has pacemaker, needing pacemaker compatible clearance w mri prior.Cont inue to monitor as scheduled. Alcohol dependence 17889 003 F10.20 chronic, unstable. pt w daily drinking : 1 -2 scotch or bourbon nightly, has cut out additional glass of wine. Discussion on importance of limiting alcohol intake or complete cessation in relation to diabetic and kidney health, along with cardiac health. Patient would like to cut back and has done in the past, Prior provided handouts for patient, recommende d AA meetings or support groups. Continue to follow with visits as scheduled. Cardiac pa jerry in situ 248206256 Z95.0 patient with pacer placed 08/12/[address] Dye for symptomati c bradycardi a into 30s. Feeling great post implantati on. no longer as fatigued, improved activity tolerance. pt w upcoming appt w cardio in November. cont xarelto 15mg daily. monitor w ov as scheduled. Cataract d ue to diabetes mellitus type 2 301056281 E11.36 Chronic, stable. Patient following with ophthalmol giancarlo. Continue to follow with [facility] specialist . Sick sinus syndrome 3608 3008 I49.5 chronic stable resolved. pt w pacer placed 2 weeks ago. regular in office. cont current medication regimen, following w cardiology . cont healthy diet & exercise as tolerated. follow up as scheduled. Megaloblas tic anemia due to vitamin B>12< deficiency 13563736 D53.1 chronic stable. hgb 12.4. secondary to b12 and possible CKD.lower b12 supplement to every other day, currently >1500. see above for kidney health recommenda tions. monitor w labs to eval need of supplement . [id number] Blanche Godinez MD [address] [address] 10/03/2024 09:52:54 10/03/2024 11:11:58 Adult health examination 463346521 Z00.00 Medicare Annual Wellness Visit done today. Advance care planning 71 0709829 Z71.89 Screening for malignant neoplasm of colon 083789255 Z12.11 Benign ess ential hypertension 1801601 I10 chronic, stable, cont. meds and diet and exercise and adjust to meet goals, recheck as scheduled Screening for cancer 158 [address]278 Z12.5 Obesity 193574419 E66.9 Weight issues discussed and informatio n on weight loss given. Needs follow up on weight control as scheduled. Chronic, Stable Body mass index 30+ - obesity 813921859 Z68.31 Counseling 462515799 Z71 .9 Patient received [facility] Value Based Patient Guide today. Chronic ki dney disease stage 3 due to type 2 diabetes mellitus 3929218128 05 N18.32 chronic, stable, cont. meds and diet and exercise and adjust to meet goals, recheck as scheduled Complicati on due to diabetes mellitus 75718643 E11.8 chronic, stable, cont. meds and diet and exercise and adjust to meet goals, recheck as scheduled [id number] MARINA Mena [address] [address] 11/20/2024 10:21:09 11/20/2024 10:55:36 Obesity 798551088 E66.9 Weight issues discussed and informatio n on weight loss given. Needs follow up on weight control as scheduled. Chronic, Stable Body mass index 30+ - obesity 066382928 Z68.30 weight issues discussed and informatio n on weight loss given. Needs follow up on weight control as scheduled. Education handout on diets given. Exercise counseling done. Will arrange referral for dietitian, nutritioni st, Physical/o ccupationa l therapy as needed or desired. Also will consider pharmaceut ical and supplement al interventi ons Counseling 894899556 Z71 .9 Patient received [facility] Value Based Patient Guide today. Benign ess ential hypertension 5615814 I10 Chronic, stable.off benazepril d/t kidney function, replaced w amlodipine but s/e of BLE edema so discontinu ed. now taking lisinopril 40mg daily & propafenon e 300mg q8h. following cardiology .Continue healthy diet and exercise as tolerated. Monitor with OV as scheduled. Alcohol dependence 79485 003 F10.20 chronic, unstable. pt w daily drinking : 1 -2 scotch or bourbon nightly, has cut out additional glass of wine. Discussion on importance of limiting alcohol intake or complete cessation in relation to diabetic and kidney health, along with cardiac health. Patient with no plan to quit. recommende d AA meetings or support groups. Continue to follow with visits as scheduled. Benign pro static hyperplasia with outflow obstruction [id number] N40.1 chronic, stable. following w urology. cont. tamsulosin 0.4mg daily & dutasterid e 0.5mg daily. cancelled MRI prostate after getting pacer, over due for PSA. Has appt w [facility] urology upon arrival to get done. Continue to monitor as scheduled. Chronic ki dney disease stage 3 due to type 2 diabetes mellitus [id number] 05 N18.32 Chronic, unstable. worsening GFR 36.stopped benazepril in Jun 2024, tried amlodipine but had to stop d/t edema, now back on lisinopril 40mg. Encouraged hydration 64-80oz water daily and avoidance of nephrotoxi c meds. Discussion on cessation or cutting back on alcohol use for kidney health. rec to cut out caffeine use as well, currently drinking 2-3 10oz coffees daily.Freya [place] advised to make appt w [facility] neph upon return next week, pt agrees. follow when back to [place] in April. Hyperlipid emia due to type 2 diabetes mellitus [id number] 36769 E78.5 Chronic, stable. Continue pravastati n 80 mg daily. Continue healthy diet and exercise as tolerated. Follow-up with labs as scheduled. Paroxysmal atrial fibrillation [id number] I48.0 Chronic, stable. Patient has been doing well since cardiovers ion in November & Pacer placed.Wade beatty to follow with cardiology both in [place] and [facility] tts. No longer on xarelto.co nt. propafenon e 300mg q8h. Follow-up as scheduled. Obstructiv e sleep apnea syndrome [id number] G47.33 Chronic, stable. Patient no longer wearing CPAP. Monitoring his sleep nightly via Apple Watch. Cardiologi st would like SUSU workup and PFTs completed for atrial fibrillati on management . Referral to pulmonolog ist placed, had PFTs in May but pt did not follow-up. Urged to return back, [place]. Continue to monitor with specialist recommenda tions. Megaloblas tic anemia due to vitamin B>12< deficiency [id number] D53.1 chronic stable. hgb improved, secondary to b12 and CKD.increa se b12 supplement to 5 days per week vs 3 days. see above for kidney health recommenda tions.jeanine tor w labs to eval need of supplement . Complicati on due to diabetes mellitus [id number] E11.8 Chronic, stable. improved A1C 6.1.Contin ue metformin ER 1000mg bid. prior w januvia & ozempic - off December 2023.Discu ssion on continued dietary changes to make, avoidance of carbs and sugars. Patient with daily alcohol use, discussion on cutting back or complete cessation to improve diabetes and kidney health. Continue to follow-up with labs as scheduled. Health Concerns Section Related Observation LastModified by Organization Detai ls LastModified Time None Recorded Concern Status LastModified by Organization Details LastModified Time None Recorded Advance Directives Directive Y: Payers Insurance Date Sequence Insurance Name Policy Number Policy Antunez Covered Member ID Antunez Member ID Guarantor Name 12/10/2024 2 [place] [id number] Al Alonso [id number] Al Alonso 12/10/2024 1 [place] Al Alonso [id number] Al Alonso Notes Date Note Type Note Provider Name and Address Organization Details Recorded Time 01/12/2024 text/html Transitional Car e Management (TCM)Reported bypatient.Reason for visit:TCM after hospitalization Discharge diagnosis:sepsis; other diagnosis: (colitis, dehydration, DELTA, a.fib) Timing:date of discharge: (01/07/2024); Specialist involved in care (& follow up date) (cardiology, urology- needs referral for catheter removal) Documents reviewed:discharge summary Medication Reconciliation:medica tion list reviewed; medicaton reconciliation (provider reconciled the current and discharge medications) Current status:feeling fine This visit was conducted via our telehealth video visit service. Provider location: in office Patient location: at home address on file Visit Participants in addition to provider and patient: none Patient has given verbal consent to telehealth visit. CHELLY VELASCO, ROBOT TECHNICIAN [address], [place], [address], [facility] - [facility], [facility] 01/12/2024 14:58:52 05/02/2024 text/html Chronic Complain ts follow upReported bypatient.Reason for visit:follow-up of chronic complaint(s)* Diagnosis:Afib paroxsymal with hypercoaguable state; BPH;dependence - Alcohol(unstable. etoh daily);diabetes with renal complications(stable) ; dyslipidemia (chronic stable); HTN (chronic, stable); sleep apnea Current status:All well controlled/stable except as noted Current control and compliance:All usually well controlled/stable except as noted; usually compliant with regimen; exercising regularly; eating healthy meals Current symptoms/concerns:non e stated Marybel Vu APRN [address], [place], [address], [facility] [employer] [facility] [employer] [facility] 05/02/2024 10:32:28 08/26/2024 text/html Chronic Complain ts follow upReported bypatient.Reason for visit:follow-up of chronic complaint(s)* Diagnosis:Afib paroxsymal with hypercoaguable state(resolved w pacer); BPH (w urology);dependence - Alcohol(unstable. etoh daily);diabetes with renal complications(stable) ; dyslipidemia (chronic stable); HTN (chronic, variable); sleep apnea; pacer: stable. x 2 weeks. Current status:All well controlled/stable except as noted Current control and compliance:All usually well controlled/stable except as noted; usually compliant with regimen; exercising regularly; eating healthy meals Current symptoms/concerns:non e stated Marybel Vu APRN [address], [place], [address], [employer] [place] [facility] 08/26/2024 10:22:56 10/03/2024 text/html Medicare Annual Wellness VisitReported bypatient.Visit type:subsequent Medicare Annual Wellness visit PMH/FH/Rx and Social History Review:updated EMR in appropriate tabs; other providers updated ANNUAL WELLNESS VISIT QUESTIONNAIRE What is the Patient's living arrangements? Live Alone What type of residence does the Patient live in? Condo How many stories (floors) to the Patient's residence? Single Story (1 floor) Does the Patient have smoke / CO detectors in the home? Yes Does the Patient use any of the following Respirator Machines? Nebulizer - No Oxygen - No CPAP/BiPAP - No Is the Patient able to afford his/her medications? Yes What type of transportation does the Patient use? I use my own car Has the Patient had a weight change in the past 6 months? Yes expected loss What type of diet the patient is currently following? Regular What best describes the Patient's level of Physical activity? Moderate Does the Patient use Tobacco Products? No Has the Patient seen a Dentist in the last 12 months? Yes Does the Patient always use a seat belt routinely? Yes Does the Patient use sunscreen routinely? No Does the Patient wear a helmet when riding a bicycle/motorcycle? No Is the Patient sexually active? Yes, uses safe sex practices How would the patient rate their health compared to others your age? Same How would the patient rate their health today compared to last year? Same Does the Patient have Pain? No Is the patient using narcotics/opioids for pain? No How much urinary incontinence does the Patient experience? None Does the Patient or people around the Patient have concerns about the Patient's hearing? No Does the Patient or people around the Patient have concerns about the Patient's vision? No Does the Patient use any of the following for mobility assistance? Cane - No Crutches - No Walker - No Wheelchair/Scooter - No In the past year has the Patient had concerns about balance or walking or feeling unsteady on his/her feet? No In the past year has the Patient had a fall? No Does the Patient's home have any trip hazards like throw rugs or uneven floors? No Does the Patient need assistance with Bathing/Toileting/Eat ing Bathing/Grooming - No Toileting - No Eating - No Does the Patient or the people around the Patient have concerns about his/her memory? No Does the Patient have an Advance Directive (Living Will)? Yes Date of Last Prostate Cancer Screening 10/07/2020 PHQ Score No or Minimal depression, (3). Imported from [employer] on 10/05/2023 Blanche Godinez MD [address] [address], [place], [address], [facility] - [facility], [facility] 10/03/2024 14:15:34 11/20/2024 text/html Chronic Complain ts follow upReported bypatient.Reason for visit:follow-up of chronic complaint(s)* Diagnosis:Afib paroxsymal without hypercoaguable state(resolved w pacer); anemia (b12: stable w supp); BPH (w urology);CKD Stage IIIb due to diabetes(unstable);de pendence - Alcohol(unstable. etoh daily);diabetes with renal complications(stable) ; dyslipidemia (chronic stable); HTN (chronic, stable);obesity; sleep apnea; pacer: stable Current status:All well controlled/stable except as noted Current control and compliance:All usually well controlled/stable except as noted; usually compliant with regimen; exercising regularly; eating healthy meals Current symptoms/concerns:non e stated Patient is here for 2 month follow up. They have been identified as a high risk patient due to multiple comorbidities, conditions, health complications, and/or hospitalizations; in an effort to improve this patient's health and quality of life, and reduce hospital visits if possible, they are being seen in the office more frequently. Marybel Vu, ROBOT TECHNICIAN [address], [place], [address], [facility] - [facility], [facility] 11/20/2024 13:40:28
== END 2025-01-01 14:30 | disposition home or self-care (01) ==
LOC: HO.HMCSH 13:39
PROVIDERS: PCP Internal Medicine; Visit Provider Physician Assistant Medical
DX: I12.9 Hypertensive chronic kidney disease with stage 1 through stage 4 chronic kidney disease, or unspecified chronic kidney disease (principal); E11.22 Type 2 diabetes mellitus with diabetic chronic kidney disease; N18.9 Chronic kidney disease, unspecified; I48.0 Paroxysmal atrial fibrillation; Z01.818 Encounter for other preprocedural examination; G47.33 Obstructive sleep apnea (adult) (pediatric); Z76.89 Persons encountering health services in other specified circumstances; E78.5 Hyperlipidemia, unspecified; E87.5 Hyperkalemia; E55.9 Vitamin D deficiency, unspecified

== ENCOUNTER 2025-01-01 13:39 | Outpatient (REF) | payer MEDICARE, BC, SELFPAY ==
--- NOTE | ~2025-01-01 | XR_ITS ---
CLINICAL HISTORY: Z01.818 - Encounter for other preprocedural examination 2 view chest x-ray Comparison: None provided Findings: Lungs are clear without acute infiltrates. No pneumothorax. Heart size normal. No acute bony abnormalities. Left pacemaker with right heart leads. Impression: No acute processes This document has been electronically signed by: Jean-Claude Sequeira MD on 01/01/2025 21:09:28
[2025-01-01 16:45] LABS: Anion Gap 15 (12-20); Blood Urea Nitrogen 43 mg/dL (9-16); Calcium 10.3 mg/dL (8.4-10.2); Carbon Dioxide 23 mmol/L (22-29); Chloride 103 mmol/L (96-108); Estimated Glomerular Filt Rate 33; Glucose Random 104 mg/dL (60-115); Magnesium 1.8 mg/dL (1.6-2.6); Potassium 5.3 mmol/L (3.3-5.1); Sodium 136 mmol/L (135-145)
[2025-01-01 17:00] LABS: TSH reflex Free T4 1.72 uIU/mL (0.32-4.0)
[2025-01-01 17:22] LABS: Folate 5.5 ng/mL (> or = 4.0); Vitamin B12 879 pg/mL (200-900)
== END 2025-01-01 13:40 | disposition home or self-care (01) ==
LOC: HO.HMGCX 13:39
PROVIDERS: PCP Internal Medicine; Visit Provider Physician Assistant Medical
DX: Z01.818 Encounter for other preprocedural examination (principal); Z76.89 Persons encountering health services in other specified circumstances; H26.9 Unspecified cataract; E78.5 Hyperlipidemia, unspecified; I48.0 Paroxysmal atrial fibrillation; I12.9 Hypertensive chronic kidney disease with stage 1 through stage 4 chronic kidney disease, or unspecified chronic kidney disease; E11.22 Type 2 diabetes mellitus with diabetic chronic kidney disease; N18.9 Chronic kidney disease, unspecified; E87.5 Hyperkalemia; E55.9 Vitamin D deficiency, unspecified
CPT/HCPCS: 36415; 71046; 80048; 82550; 82607; 82746; 83735; 84443; 96127; 99202

== ENCOUNTER → 2025-01-01 15:22 | Outpatient (BNV) | payer MEDICARE, BC, SELFPAY | PROVIDERS: PCP Internal Medicine; Visit Provider Radiology Diagnostic Radiology | DX: Z01.818 Encounter for other preprocedural examination (principal) | CPT/HCPCS: 71046 ==

== ENCOUNTER → 2025-01-02 11:19 | Outpatient (REF) | payer MEDICARE, BC, SELFPAY ==
--- NOTE | 2025-01-02 11:21 | ECG_ITS ---
Test Reason : Z01.818 - Encounter for other preprocedural examination Blood Pressure : */* mmHG Vent. Rate : 85 BPM Atrial Rate : 85 BPM P-R Int : 174 ms QRS Dur : 170 ms QT Int : 422 ms P-R-T Axes : * -78 109 degrees QTcB Int : 502 ms AV dual-paced rhythm Abnormal ECG No previous ECGs available Referred By: Ashlie Cohen Electronically Signed By: QUINCY THOMPSON
== END ==
LOC: HO.CARD 11:19
PROVIDERS: PCP Internal Medicine; Visit Provider Physician Assistant Medical
DX: Z01.818 Encounter for other preprocedural examination (principal)
CPT/HCPCS: 93005

== ENCOUNTER → 2025-01-02 11:21 | Outpatient (BNV) | payer MEDICARE, BC, SELFPAY | PROVIDERS: PCP Internal Medicine; Visit Provider Internal Medicine | DX: R94.31 Abnormal electrocardiogram [ECG] [EKG] (principal); Z95.0 Presence of cardiac pacemaker | CPT/HCPCS: 93010 ==

== ENCOUNTER 2025-02-05 13:21 | Outpatient (AMB) | payer MEDICARE, BC, SELFPAY ==
[2025-02-05 13:33] VITALS: BP 160/89; PULSE 86; RESP 16; TEMP 36.6; O2SAT 97; BMI 29.6
--- NOTE | 2025-02-05 13:33 | A.OFFPC_ITS ---
Vital Signs 02/05/25 13:33 02/05/25 14:01 Height 5 ft 4.29 in Weight 174 lb BMI 29.6 BP 160/89 H 135/68 Blood Pressure Location Rt brachial Position Sitting Respiration 16 Pulse 86 70 Pulse Source Pulse Oximeter Temp 97.9 F Temp Source Temporal Artery Scan Pulse Oximetry (%) 97 Oxygen Delivery Method Room Air Intake Visit Reasons: 1 month follow up Perfect Bind Machine Operator Required: No Accompanied by: Self / Same As Patient Allergies No Known Allergies Allergy (Verified 02/05/25 13:56) Medication List - Last Reconciled 02/05/25 by Ashlie Cohen PA-C cholecalciferol (vitamin D3) 50 mcg PO DAILY lisinopril 20 mg PO DAILY metformin 1,000 mg PO BID pravastatin 80 mg PO QPM prednisolone acetate 1% 1 drp ophthalmic (eye) QID propafenone ER 425 mg PO BID sodium bicarbonate 650 mg PO tamsulosin mg PO Tobacco use date assessed: 02/05/25 Dental Screening Dental Screen Date: 01/01/25 HPI 1 month follow up HPI Details The patient is a 69-year-old male presenting with management of atrial fibrillation, hypertension, and follow-up on chronic kidney disease. The patient underwent cataract surgery on the left eye, which improved brightness perception significantly. The right eye is pending surgery, likely next year, due to the grading system of cataract severity. The patient has a history of atrial fibrillation, for which the pointer machine operator temporarily increased the dose of propafenone to 425 mg twice daily. The patient monitors his heart rhythm using an Apple Watch and reports no current symptoms of atrial fibrillation. Hypertension management has been challenging, with adjustments in medication from amlodipine and benazepril to lisinopril. The current dose of lisinopril is 20 mg, which has stabilized his blood pressure. The patient has chronic kidney disease, possibly exacerbated by a previous episode of low blood pressure due to vagus nerve involvement. The senior accountant cpa prescribed a powder to manage hyperkalemia, but repeat blood work is needed to assess current potassium levels. The patient's last A1c was 6.3, indicating prediabetes. He plans to monitor this every three months. Social History - Residence: Spends half the year in [facility]. [facility], [facility] Medical History (Updated 02/05/25 @ 15:07 by Ashlie Cohen PA-C) Prediabetes Perforated intestine, nontraumatic H/O asbestos exposure CKD (chronic kidney disease) Paroxysmal atrial fibrillation Chronic anemia Obstructive sleep apnea Hyperlipidemia Hypertension Type 2 diabetes mellitus with hemoglobin A1c goal of less than 7.0% Pre-op evaluation Vitamin D deficiency Hyperkalemia Establishing care with new doctor, encounter for Family History Father No problems noted. Mother High blood pressure Social History Housing: Condominium Alcohol intake: current Alcohol intake frequency: 0-2 drinks per day Alcohol ty pe: hard liquor Patient Tobacco Use Status: Never used Tobacco service: No Current occupational status: retired Cognitive needs: No Hearing needs: No Vision needs: No Questionnaire PHQ-9 Over the last 2 weeks, how often have you been bothered by any of the following problems? 1. Little interest or pleasure in doing things: not at all 2. Feeling down, depressed, or hopeless: not at all 3. Trouble falling or staying asleep, or sleeping too much: not at all 4. Feeling tired or having little energy: not at all 5. Poor appetite or overeating: not at all 6. Feeling bad about yourself - or that you are a failure or have let yourself or your family down: not at all 7. Trouble concentrating on things, such as reading the newspaper or watching television: not at all 8. Moving or speaking so slowly that other people could have noticed. Or the opposite - being so fidgety or restless that you have been moving around a lot more than usual: not at all 9. Thoughts that you would be better off or of hurting yourself in some way: not at all Total score: 0 Depression Screening Interpretation: Negative Depression Screening Done: Yes 85108 - PHQ-9 Billing: Yes Source: Developed by Drs. Vamshi Bryan, Rina Ho, Rj Oneil and colleagues, with an educational crystal from [employer]. Thrive Questionnaire Date Thrive assessed: 01/01/25 I am a: Patient What is your living situation today?: I have a steady place to live Within the past 12 months, did the food you bought not last and you didn't have the money to get more?: Never true Within the past 12 months, did you worry whether your food would run out before you got money to buy more?: Never true Do you have trouble paying for medicines?: No Do you have trouble getting transportation to medical appointments?: No Do you have trouble paying your heating and electricity bill?: No Do you have trouble taking care of your child, family member or friend?: No Do you have trouble with day-to-day activities such as bathing, preparing meals, shopping, managing finances, etc.?: No Are you currently unemployed and looking for a job?: No Are you interested in more education?: No Please select the resources that you would like help with: None Currently or been in a relationship where the following occur: No concerns reported THRIVE Score: 0 AUDIT C Alcohol Use Questionnaire (AUDIT-C) 1. How often do you have a drink containing alcohol?: 4 or more times a week 2. How many drinks containing alcohol do you have on a typical day when you are drinking?: 1 or 2 3. How often do you have six or more drinks on one occasion?: Never Total Score: 4 Score Reviewed/Action Taken: No VALENTINA-7 AMB Questionnaire VALENTINA-7 Date VLAENTINA - 7 assessed: 01/01/25 Feeling nervous, anxious, or on edge: 0 = Not at all Not being able to stop or control worryin = Not at all Worrying too much about different things: 0 = Not at all Trouble relaxin = Not at all Being so restless that it is hard to sit still: 0 = Not at all Becoming easily annoyed or irritable: 0 = Not at all Feeling afraid as if something awful might happen: 0 = Not at all Total VALENTINA-7 score (0-4 normal; 5-9 mild; 10-14 moderate; 15-21 severe): 0 Source: Developed by Drs. Vamshi Bryan, Rina Ho, Rj Oneil and colleagues, with an educational crystal from [employer]. VALENTINA-7 Assessment Billing VALENTINA-7 Assessment Tool: VALENTINA-7 Assessment 90860 Review of Systems Const Details: - Cardiovascular: Denies chest pain or palpitations. - Respiratory: Denies dyspnea or wheezing. All systems reviewed & are unremarkable except as noted in HPI and below Physical exam (Primary Care) Vital Signs: Last Vital Signs Temp 97.9 F 02/05/25 13:33 Pulse 70 02/05/25 14:01 Resp 16 02/05/25 13:33 BP 135/68 02/05/25 14:01 Pulse Ox 97 02/05/25 13:33 Oxygen Delivery Method Room Air 02/05/25 13:33 Care Plan Goal for BP management: <140/90 at Goal BMI result Body Mass Index 29.6 BMI Assessment/Plan discussion: High BMI High, discussed plan: lifestyle, weight reduction, dietary, physical activity and alcohol moderation Tobacco/Smoking Status: Tobacco use Status Tobacco use date assessed 02/05/25 02/05/25 13:36 Patient Tobacco Use Status Never used Tobacco 02/05/25 13:36 PHQ-9: PHQ-9 Score PHQ-9: Total score 0 02/05/25 14:25 Depression Screening Interpretation: Negative Thrive Assessment: Date of Thrive Assessment Date Thrive assessed 01/01/25 02/05/25 13:36 Currently or been in a relationship where the following occur: No concerns reported Const Other: Appearance: Alert. Oriented X3. No acute distress. Head: Normal external exam. Normocephalic. Atraumatic. Eyes: Pupils are unequal in size due to cataract surgery on the left eye. Left eye has an artificial lens beneath the cornea, right eye has the original biological lens. Extraocular movements intact. Conjunctiva and sclera normal. Eyelids normal. Throat: Pharynx normal. Uvula midline. Moist mucous membranes. Neck: Normal inspection. Neck supple. Full range of motion. Cardiovascular: Normal heart rate and rhythm. Heart sound normal. No murmurs noted. Pulses normal throughout. Blood pressure is 135/68. Respiratory: No respiratory distress. Painless inspiration. Breath sounds normal. No wheezes/rales/rhonchi noted. Chest nontender. No accessory muscle usage noted or decreased air movement noted. Back: Full range of motion noted. Skin: Skin warm and dry. Normal skin color. Normal skin turgor. No rashes/lesions/lacerations noted. Extremities: No lower extremity edema. Extremities exhibit normal range of motion. Neuro: Oriented X 3. No motor deficit. No sensory deficit. Reflexes normal. Results Reviewed Results Reviewed: - Labs: A1c 6.3% (December 2024), Potassium elevated in previous test. Coding Level of Care Code Est Pt Level 4 (68906) Complex EM visit Add On G2211 Diagnoses Paroxysmal atrial fibrillation I48.0 Hypertension I10 CKD (chronic kidney disease) N18.9 Prediabetes R73.03 Hyperkalemia E87.5 Additional Codes VALENTINA-7 Assessment Billing - VALENTINA-7 Assessment Tool: VALENTINA-7 Assessment 35791 ([id number]) PHQ-9 - 19176 - PHQ-9 Billing: Yes ([id number]) Assessment & Plan Assessment & Plan (1) Paroxysmal atrial fibrillation: Code(s): I48.0 - Paroxysmal atrial fibrillation Category: Medical Plan: The patient is currently on propafenone 425 mg twice daily, temporarily increased by the pointer machine operator to manage atrial fibrillation. The patient is advised to monitor his heart rhythm using an Apple Watch and report any irregularities. (2) Hypertension: Code(s): I10 - Essential (primary) hypertension Category: Medical Plan: The patient is on lisinopril 20 mg daily, which has stabilized his blood pressure. Regular monitoring of blood pressure at home is recommended to ensure continued control. (3) CKD (chronic kidney disease): Code(s): N18.9 - Chronic kidney disease, unspecified Category: Medical Plan: The patient is advised to have repeat blood work to monitor potassium levels, as previous tests indicated hyperkalemia. The senior accountant cpa has prescribed a powder to manage potassium levels, and the patient should follow up with the senior accountant cpa for further management. (4) Prediabetes: Code(s): R73.03 - Prediabetes Category: Medical Plan: The patient's A1c is 6.3%, indicating prediabetes. It is recommended to monitor A1c every three months to ensure it remains below 7%. (5) Hyperkalemia: Code(s): E87.5 - Hyperkalemia Category: Medical Plan: Patient will go for outpatient blood work. Patient denies any acute complaints. Will continue to monitor and reassess. Plan Plan Patient was informed and verbally consented to the use of an ambient scribe for clinic note documentation during this visit. 1. Atrial Fibrillation The patient is currently on propafenone 425 mg twice daily, temporarily increased by the pointer machine operator to manage atrial fibrillation. The patient is advised to monitor his heart rhythm using an Apple Watch and report any irregularities. 2. Hypertension The patient is on lisinopril 20 mg daily, which has stabilized his blood pressure. Regular monitoring of blood pressure at home is recommended to ensure continued control. 3. Chronic Kidney Disease The patient is advised to have repeat blood work to monitor potassium levels, as previous tests indicated hyperkalemia. The senior accountant cpa has prescribed a powder to manage potassium levels, and the patient should follow up with the senior accountant cpa for further management. 4. Prediabetes The patient's A1c is 6.3%, indicating prediabetes. It is recommended to monitor A1c every three months to ensure it remains below 7%. During the visit, we discussed the management of atrial fibrillation with an increased dose of propafenone and the importance of monitoring heart rhythm. We also reviewed the current hypertension management with lisinopril and the need for regular blood pressure monitoring. The patient was advised to have repeat blood work to monitor potassium levels due to previous hyperkalemia and to follo w up with the senior accountant cpa. We discussed the importance of monitoring A1c levels every three months to manage prediabetes effectively. Orders: Orders Basic Metabolic Panel Today E87.5 - Hyperkalemia Patient Instructions: - Continue taking propafenone as prescribed and monitor heart rhythm with Apple Watch. - Take lisinopril 20 mg daily and monitor blood pressure regularly at home. - Schedule repeat blood work to check potassium levels before the next nephrology appointment. - Monitor A1c every three months to ensure it remains below 7%.
--- OUTSIDE RECORDS SUMMARY | 2025-02-05 13:54 | XMS_ITS | Patient Health Record ---
Author Organization [facility] Address [address] [place] [address] Care Team Providers Care End User Support Specialist Name Role Phone Vamshi Velasco Primary Care Provider Twan GuillenSaadTatum Unavailable [phone] Allergies No Known Allergies Reason For Referral No Information Medications Medication SIG (Take, Route, Frequency, Duration) Notes Start Date End Date Status Ciclopirox Olamine 0.77 % 1 application to affected area Externally to feet Twice a day; Duration: 30 days Active B Complex Active CeleBREX Not-Taking Multivitamin Active eliquis Not-Taking amLODIPine Besy-Benazepril HCl 5-10 MG as directed Orally Active Januvia 100 MG 1 tablet Orally Once a day; Duration: 30 day(s) Not-Taking Metoprolol Succinate 50 MG 1 capsule Orally Once a day; Duration: 30 day(s) Active Jublia 10 % 1 application Externally Once a day; Duration: 30 days Active metFORMIN HCl 1000 MG 1 tablet with a me al Orally Once a day; Duration: 30 day(s) Active Pravastatin Sodium 80 MG 1 tablet Orally Once a day; Duration: 30 day(s) 2x Active Ciclopirox 8 % 1 application Externally Twice a day Active Ciclopirox Olamine 0.77 % 1 application Externally Twice a day; Duration: 30 days Active Ozempic Active FLUoxetine HCl 40 MG 1 capsule Orally On ce a day; Duration: 30 day(s) Not-Taking Immunizations Vaccine Route Administration Date Status Comme nts Influenza Unknown 04/09/2020 Administered Influenza Unknown 03/10/2021 Administered COVID-19 Moderna Vaccine Unknown 10/07/2020 Administere d 1st 09/09/2020 Social History Tobacco Use: Social History Observation Description Date Details (start date - stop date) Never Smoker NA - NA Tobacco Use/Smoking Question Answer Notes Are you a: nonsmoker Additional Findings: Tobacco Non-User Current no n-smoker Alcohol Screen Question Answer Notes Did you have a drink contain ing alcohol in the past year? Yes How often did you have a dri nk containing alcohol in the past year? 4 or more times a week (4 points) How often did you have 6 or more drinks on one occasion in the past year? Daily or almost daily (4 points) Points 8 Interpretation Positive Tobacco use other than smoking: Question Answer Notes Are you an other tobacco user? No Problems Problem Type SNOMED Code ICD Code Onset Dates Problem Status W/U Status Risk Notes Problem Non-pressure chronic ulcer of other part of left foot limited to breakdown of skin (L97.521) Active confirmed Problem Type II diabetes mellitus without complication (350655639) Type 2 diabetes mellitus without complications (E11.9) Active confirmed Plan Of Treatment Pending Test Test Name Order Date *Liver Function Test (LFT) 06/24/2021 [id number] NAIL, 6 OR MORE 06/24/2021 [id number] NAIL, 6 OR MORE 12/03/2020 [id number] NAIL, 6 OR MORE 03/11/2021 [id number] NAIL, 6 OR MORE 06/27/2022 [id number] NAIL, 6 OR MORE 12/19/2022 [id number] <25 sq cm 06/27/2022 Insurance Providers Payer Name Payer Address Payer Phone Subscriber Number Group Number Insured Name Patient Relationship to Insured Coverage Start Date Coverage End Date Medicare [employer] [address] [facility] [address] [id number] Al Alonso Self - patient is the insured [facility] [address] [place] [address] [id number] Al Alonso Self - patient is the insured Medical (General) History Medical History History ICD Code Back,Hip,and Knee pain Depression Diabetic type 2 High blood pressure Measles Chicken pox Surgical History Surgery Date(Month/Year) bowel surgery, non perforated 05/1953 appendectomy 1964 corneal transplant 1980 hip replacement 01/21/21 right hip replacement 02/28
--- OUTSIDE RECORDS SUMMARY | 2025-02-05 13:54 | XMS_ITS | Clinical Summary ---
Author Organization [facility] Address [address] [facility] [address] [place] [address] Care Team Providers Care Stock Ranch Supervisor Name Role Phone Avery Velasco MD Primary Care Provider [phone] Allergies No known active allergies Medications amLODIPine-benaz epriL (Lotrel) 5-10 mg capsule amlodipine 5 mg-benazepril 10 mg capsule 04/02/20 22 Active apixaban (Eliquis) 2.5 mg tablet Eliquis 2.5 mg tablet Active betamethasone dipropionate (Diprolene) 0.05 % cream betamethasone dipropionate 0.05 % topical cream PLEASE SEE ATTACHED FOR DETAILED DIRECTIONS Active buPROPion XL (Wellbutrin XL) 150 mg 24 hr tablet Active celecoxib (CeleBREX) 200 mg capsule Active ciclopirox (Penlac) 8 % solution 1 Application every 12 (twelve) hours. Active dutasteride (Avodart) 0.5 mg capsule Take 0.5 mg by mouth once daily. 10/27/19 23 Active econazole nitrate 1 % cream econazole 1 % topical cream APPLY TWICE DAILY TO SKIN AROUND AND UNDER TOENAILS UNTIL CLEAR Active efinaconazole (Jublia) 10 % solution with applicator 1 Application 1 (one) time each day at the same time. Active FLUoxetine (PROzac) 40 mg capsule Active fluticasone (Flonase) 50 mcg/actuation nasal spray 2 sprays once daily. 09/21/19 23 Active metFORMIN (Glucophage) 1,000 mg tablet metformin 1,000 mg tablet TAKE 1 TABLET BY MOUTH TWICE A DAY 04/05/20 22 Active metoprolol succinate XL (Toprol-XL) 50 mg 24 hr tablet metoprolol succinate ER 50 mg tablet,extended release 24 hr Active ondansetron (Zofran) 4 mg tablet ondansetron HCl 4 mg tablet Active pravastatin (Pravachol) 80 mg tablet pravastatin 80 mg tablet 01/20/20 22 Active Ozempic 0.25 mg or 0.5 mg (2 mg/3 mL) pen-injector SMARTSI.25 Milligram(s) SUB-Q Once a Week 11/25/19 23 Active SITagliptin phosphate (Januvia) 100 mg tablet 04/02/20 22 Active prednisoLONE acetate (Pred-Forte) 1 % ophthalmic suspension Administer 1 drop into the left eye once daily. Active tamsulosin (Flomax) 0.4 mg 24 hr capsule Take 0.4 mg by mouth once daily. Active Active Problems Problem Noted Date Diagnosed Date Atrial fibrillation (Multi-HCC) 01/25/2023 SUSU (obstructive sleep apnea) 01/25/2023 Type 2 diabetes mellitus without complication (M ulti-HCC) 01/25/2023 Primary hypertension 01/25/2023 Social History Tobacco Use Types Packs/Day Years Used Date Smoking Tobacco: Never Smokeless Tobacco: Never Tobacco Cessation:Counseling Given: Not Answered Alcohol Use Standard Drinks/Week Comments Not Asked 0 (1 standard drink = 0.6 oz pur e alcohol) 2 drinks per day Sex and Gender Information Value Date Recorded Sex Assigned at Not on file Legal Sex Male 2:51 AM EST Gender Identity Not on file Sexual Orientation Not on file Last Filed Vital Signs Vital Sign Reading Time Taken Comments Blood Pressure 126/90 01/25/2023 2:00 PM EDT Pulse 87 01/25/2023 2:00 PM EDT Temperature 36.5 C (97.7 F) 01/25/2023 1:30 PM EDT Respiratory Rate 16 01/25/2023 2:00 PM EDT Oxygen Saturation 95% 01/25/2023 1:45 PM EDT Inhaled Oxygen Concentration - - Weight 83.9 kg (185 lb) 01/25/2023 9:02 AM EDT Height 166.4 cm (5' 5.5 ) 01/25/2023 9:02 AM EDT Body Mass Index 30.32 01/25/2023 9:02 AM EDT Plan of Treatment Health Maintenance Due Date Last Done Comments CT Colonography 1953 Colonoscopy 1953 Colorectal Cancer Screening 1953 Diabetes: Hemoglobin A1C 1953 FIT-DNA 1953 FIT 1953 FOBT 1953 High Risk LDL 1953 Lipid Panel 1953 Sigmoidoscopy 1953 Diabetes: Foot Exam 1963 Diabetes: Retinopathy Screening 1963 Hepatitis C Screening 1971 Diabetes: Urine Protein Screening 1972 Medicare Annual Wellness (AWV) 05/10/2019 COVID-19 Vaccine ( season) 2024 03/18/2022, 03/10/2022, 06/25/2021, Additional history exists Depression Screening 07/10/2024 Influenza Vaccine (#1) 2025 , 03/10/2022, 04/21/2021, Additional history exists Pneumococcal Vaccine: 50+ Years (3 of 3 - PCV20 or PCV21) 07/10/2025 07/10/2020, 06/27/2018, 01/23/2007 DTaP/Tdap/Td Vaccines (2 - Td or Tdap) 12/24/2031 12/23/2021, 10/19/2000 Hepatitis B Vaccines Completed 06/09/2014, 01/03/2014, 12/06/2013 Zoster Vaccines Completed 03/18/2021, 12/14/2020 HIB Vaccines Aged Out No longer eligi ble based on patient's age to complete this topic HPV Vaccines Aged Out No longer eligi ble based on patient's age to complete this topic Hepatitis A Vaccines Aged Out No long er eligible based on patient's age to complete this topic IPV Vaccines Aged Out No longer eligi ble based on patient's age to complete this topic Meningococcal B Vaccine Aged Out No l onger eligible based on patient's age to complete this topic Meningococcal Vaccine Aged Out No belen fiordaliza eligible based on patient's age to complete this topic Rotavirus Vaccines Aged Out No longer eligible based on patient's age to complete this topic Medical Devices Implanted Type Area Power Plant Operator Apprentice Device Identifier Shelf Expiration Date Model / Serial / Lot Cornea [id number] Implanted:Qty: 1 on 01/25/2023 by Natalia Ahn MD at [facility] Cornea Left: Cornea [employer] [id number] 02/04/2023 [id number] / Joint Hip Joint Hip Bilateral: Hip Insurance MEDICARE PART A AND B [facility] Advance Directives * Full Code (Latest Code Status on File) Date Activated Date Inactivated Comments 01/25/2023 8:51 AM 01/25/2023 4:19 PM Care Teams Stock Ranch Supervisor Relationship Specialty Start Date End Date Avery Velasco MD [address] [place] [id number] PCP - General 02/02/23
--- OUTSIDE RECORDS SUMMARY | 2025-02-05 13:55 | XMS_ITS | Patient Health Record ---
Author Organization [facility] Address [address] [place] [address] Care Team Providers Care Finished Goods Stock Clerk Name Role Phone Blanche Godinez MD Primary Care Provider Unavailab Garrett Rees Unavailable [phone] CHRISTIANO MANN Unavailable [phone] NICKY AGUILERA Unavailable [phone] Allergies No Known Allergies Reason For Referral No Information Medications Medication SIG (Take, Route, Frequency, Duration) Notes Start Date End Date Status Dutasteride 0.5 MG 1 capsule Orally Onc e a day Active Lisinopril 20 MG 1 tablet Orally Once a day for 90 days 01/29/2025 Active Pravastatin Sodium 80 MG 1 tablet Orally Once a day Active Vitamin B12 1000 MCG 1 tablet Orally Onc e a day Active Psyllium Active amLODIPine Besylate 10 MG 1 tablet Orall y Once a day Not-Taking metFORMIN HCl 1000 MG 1 tablet with a me al Orally TWICE DAILY Active Xarelto 15 MG 1 tablet with food Orally Once a day for 30 days 10/06/2023 Active Propafenone HCl ER 425 MG 1 capsule Oral ly every 12 hrs for 90 days 01/31/2025 Active Flomax 0.4 MG 1 capsule Orally Onc e a day Active Lisinopril 40 MG 1 tablet Orally Once a day for 90 days Active Propafenone HCl ER 225 MG 1 capsule Oral ly every 12 hrs for 90 days 11/11/2024 Active Magnesium Active Social History Tobacco Use: Social History Observation Description Date Details (start date - stop date) Never Smoker NA - NA Tobacco Use/Smoking Question Answer Notes Are you a nonsmoker Alcohol Screen (Audit-C) Question Answer Notes Did you have a drink contain ing alcohol in the past year? Yes How often did you have a dri nk containing alcohol in the past year? Monthly or less (1 point) How many drinks did you have on a typical day when you were drinking in the past year? 1 or 2 drinks (0 point) How often did you have 6 or more drinks on one occasion in the past year? Never (0 point) Points 1 Interpretation Negative Problems Problem Type SNOMED Code ICD Code Onset Dates Problem Status W/U Status Risk Notes Problem Essential hypertension (70729458) Essential (primary) hypertension (I10) Active confirmed Problem Paroxysmal atrial fibrillation (670877018) Paroxysmal atrial fibrillation (I48.0) Active confirmed Problem Sick sinus syndrome (89371898) Sick sinus syndrome (I49.5) Active confirmed Vital Signs Heart Rate 83 /min 11/11/2024 Respiratory Rate 12 /min 11/11/2024 Blood pressure diastolic 82 mm Hg 11/11/2024 Height 65 in 11/11/2024 Blood pressure systolic 142 mm Hg 11/11/2024 Weight 173 lbs 11/11/2024 BMI 28.79 kg/m2 11/11/2024 Encounters Encounter Location Date Provider Diagnosis [facility] [address] [place] [address] 08/12/2024 Garrett MADDOX [facility] [address] [address] 04/23/2024 Garrett MADDOX Paroxysmal atrial fibrillation I48.0 and Essential (primary) hypertension I10 [facility] L.LSapna [address] [place] [phone] 07/15/2024 CHRISTIANO MANN Paroxysmal atrial fibrillation I48.0 ; Essential (primary) hypertension I10 and Sick sinus syndrome I49.5 [facility] L.Alfonso [address] [place] [phone] 08/09/2024 NICKY AGUILERA Paroxysmal atrial fibrillation I48.0 ; Essential (primary) hypertension I10 and Sick sinus syndrome I49.5 [facility] L.Alfonso [address] [place], [place] [address] [address] 10/29/2024 Garrett MADDOX Paroxysmal atrial fibrillation I48.0 ; Essential (primary) hypertension I10 and Sick sinus syndrome I49.5 [facility] L.LAricC. [address] [facility] [place] [address] 11/11/2024 CHRISTIANO MANN Paroxysmal atrial fibrillation I48.0 ; Essential (primary) hypertension I10 and Sick sinus syndrome I49.5 [facility] [address] [address] 01/31/2025 Garrett MADDOX [facility] L.Alfonso [address] [place] [phone] 10/05/2024 Garrett MADDOX [facility], L.LAricCA[address] [address] 10/07/2024 Garrett MADDOX [facility], L.L.[address] [address] 10/09/2024 Garrett MADDOX [facility], L.LAricCA[address] [address] 10/09/2024 Garrett MADDOX [facility], L.LAricCA[address] [address] 01/29/2025 Garrett MADDOX Assessments Encounter Date Diagnosis (ICD Code) Assessment Notes Treatment Notes Treatment Clinical Notes Section Notes 04/23/2024 Paroxysmal atrial fibrillation (ICD-10 - I48.0) 1. Ordered EKG reviewed and shows SR with a rate of 73bpm, ND interval 220ms 2. Continue Xarelto at 15mg for anticoagulation therapy-due to kidney function 3. Encourage LINQ loop recorder to monitor AF and limit use of anticoagualtion 4. RTO in 6 months for routine follow up, unless he chooses to move forward with LINQ loop recorder 07/15/2024 Essential (primary) hypertension (ICD-10 - I10) 07/15/2024 Paroxysmal atrial fibrillation (ICD-10 - I48.0) 1. EKG ordered and reviewed and shows sinus rhythm with a rate of 58 bpm. QRS 110ms, QTc 435ms 2. We will do an event monitor to evaluate heart rates and rhythm 3. Discussed possible need for pacemaker if event monitor results in symptomatic bradycardia 4. Will RTO following event monitor to review 08/09/2024 Paroxysmal atrial fibrillation (ICD-10 - I48.0) 1. Ordered monitor reveals multiple sinus pause episodes, longest 5 seconds. Pause episodes associated with lightheadedness and dizziness. Atrial fibrillation seen on monitor, longest episode 13 minutes 2. Due to sick sinus syndrome we will schedule a dual chamber pacemaker implant. 3. Pre op CBC and CMP will be obtained. Procedure risks and benefits reviewed with patient understanding. Patient will follow up as indicated post procedure 4. Once pacemker implanted will start Propafenone for antiarrhythmic therapy 10/29/2024 Paroxysmal atrial fibrillation (ICD-10 - I48.0) 11/11/2024 Paroxysmal atrial fibrillation (ICD-10 - I48.0) 1. Will stop amiodarone and switch to propafenone 2. Will start propafenone 225mg BID for antiarrhythmic therapy 3. Will stop Xarelto as he has had no further episodes of AF 4. Will continue to monitor through [facility] 10/29/2024 Essential (primary) hypertension (ICD-10 - I10) 1. Will stop amloidpine-benazaop ril due to swollen ankles from amloidpine 2. Will start lisinopril 10mg at bedtime. Will titrate as needed 3. Patient will monitor BP twice daily in the AM and PM to evaluate BP status with medication regime 11/11/2024 Essential (primary) hypertension (ICD-10 - I10) 1. Increase Lisinopril to 40mg at bedtime 2. Patient will monitor BP twice daily in the AM and PM to evaluate BP status with medication regime 04/23/2024 Essential (primary) hypertension (ICD-10 - I10) 07/15/2024 Sick sinus syndrome (ICD-10 - I49.5) 08/09/2024 Essential (primary) hypertension (ICD-10 - I10) 08/09/2024 Sick sinus syndrome (ICD-10 - I49.5) 10/29/2024 Sick sinus syndrome (ICD-10 - I49.5) 1. Ordered pacemaker check reviewed with normal function noted and adequate battery life. 2. Pacemaker site is dry without redness or pocket erosion 3. Will RTO in 3 months for routine device check. Unless otherwise needed 11/11/2024 Sick sinus syndrome (ICD-10 - I49.5) 1. Ordered pacemaker check reviewed with normal function noted and adequate battery life. 2. Pacemaker site is dry without redness or pocket erosion 3. Will RTO in 3 months for routine device check. Unless otherwise needed Plan Of Treatment Next Appt Details Provider Name:CHRISTIANO HOLLY MIRA, 05/12/2025 09:50:00 AM, [address], [address], [address], Insurance Providers Payer Name Payer Address Payer Phone Subscriber Number Group Number Insured Name Patient Relationship to Insured Coverage Start Date Coverage End Date MEDICARE PART B [address] [address] [place] [address] [id number] Al Roger Self - patient is the insured [facility] [employer] [address] [place] [address] [id number] Celeste Al Self - patient is the insured 8 Medical (General) History Medical History History ICD Code Atrial fibrillation Type II diabetes Dysfunction of eustachian tube Bilateral neural hearing loss Hypertension Obesity Hyperlipidemia Depression Surgical History Surgery Date(Month/Year) Appendectomy Joint replacement Tonsillectomy Vasectomy Appendectomy Hospitalization History Reason Date(Month/Year) No recent visits to [facility] or [facility]
--- OUTSIDE RECORDS SUMMARY | 2025-02-05 13:55 | XMS_ITS | Clinical Summary ---
Author Organization [facility] Address [address] [address] Phone Care Team Providers Care Net Developer Architect Name Role Phone Blanche Godinez MD Primary Care Provider [phone] Allergies No known active allergies Medications dutasteride (AVODART) 0.5 mg capsule Take 1 capsule by mouth every morning. 09/05/2024 Active lisinopril (PRINIVIL,ZESTR IL) 20 MG tablet Take 1 tablet by mouth every morning. 10/29/2024 Active lisinopril (PRINIVIL,ZESTR IL) 40 MG tablet Take 1 tablet by mouth every morning. 11/11/2024 Active metFORMIN (GLUCOPHAGE) 1000 MG tablet Take 1 tablet by mouth 2 (two) times a day. 09/05/2024 Active propafenone (RYTHMOL SR) 225 MG 12 hr capsule Take 1 capsule by mouth 2 (two) times a day. 11/12/2024 Active tamsulosin (FLOMAX) 0.4 mg Cap Take 1 capsule by mouth every morning. 10/12/2024 Active prednisoLONE acetate (PRED FORTE) 1 % ophthalmic suspension Place 1 drop into the left eye daily. 5 mL 3 12/11/2024 Active ketorolac (ACULAR) 0.5 % ophthalmic solution Place 1 drop into the left eye 4 (four) times a day. Start 3 days prior to surgery. 5 mL 1 12/12/2024 01/12/20 25 prednisoLONE acetate (PRED FORTE) 1 % ophthalmic suspension Place 1 drop into the left eye 4 (four) times a day. 5 mL 1 12/12/2024 01/12/20 25 brimonidine (ALPHAGAN) 0.2 % ophthalmic solution Place 1 drop into the left eye 2 (two) times a day for 14 days. 5 mL 01/16/2025 01/31/20 25 Encounters Date Type Department Care Team Description 01/28/2025 11:45 AM EDT Office Visit [facility] in [place] [id number] Natalia Ahn MD Status post left cataract extraction (Primary Dx) 01/16/2025 2:30 PM EDT Office Visit [facility] [place] [address] Shemar Staton, HENRIETTA Status post left cataract extraction (Primary Dx) 01/16/2025 Telephone [facility] ~[place] [address] Justin Hernandez RN 01/15/2025 2:40 PM EDT Outpatient Surgery [facility] ~[place] [phone] Natalia Ahn MD Nuclear sclerotic cataract of both eyes; Nuclear senile cataract, left 01/14/2025 Telephone [facility] ~[address] [address] Renata Matute RN Pre-op Education/coordinati on (Patient reached, arrival time given (1'15), NPO status discussed (No food after midnight, Clear liquids 2 hours before arrival time), medication,drops, and escort information provided. ) 12/17/2024 Orders Only [facility] in [address] [address] Natalia Ahn MD Nuclear senile cataract, left (Primary Dx) 12/11/2024 1:00 PM EDT Procedure visit [facility] in [address] [address] Age-related nuclear cataract of both eyes (Primary Dx) 12/11/2024 11:30 AM EDT Office Visit [facility] in [address] [address] Natalia Ahn MD Salzmann's nodular degeneration (Primary Dx); Nuclear sclerotic cataract of both eyes; Type 2 diabetes mellitus without complication, without long-term current use of insulin; Cornea replaced by transplant; Irregular astigmatism of both eyes from Last 3 Months Social History Tobacco Use Types Packs/Day Years Used Date Smoking Tobacco: Unknown Tobacco Cessation:Counseling Given: Not Answered Education Answer Date Recorded Are you interested in more education? Not on jessica e 11/01/2024 Are you concerned about learning? Not on file 11/01/2024 No 11/01/2024 No 11/01/2024 Digital Access Answer Date Recorded No 11/01/2024 No 11/01/2024 Reliable internet access at home? Not on file 11/01/2024 Device with a working camera? Not on file Sex and Gender Information Value Date Recorded Sex Assigned at Not on file Legal Sex Male 4:39 AM EST Gender Identity Not on file Sexual Orientation Not on file Last Filed Vital Signs Vital Sign Reading Time Taken Comments Blood Pressure 150/88 01/15/2025 2:52 PM EDT Pulse 69 01/15/2025 2:52 PM EDT Temperature 36.7 C (98.1 F) 01/15/2025 1:41 PM EDT Respiratory Rate 17 01/15/2025 2:52 PM EDT Oxygen Saturation 100% 01/15/2025 2:51 PM EDT Inhaled Oxygen Concentration - - Weight - - Height - - Body Mass Index - - Plan of Treatment Upcoming Encounters Date Type Department Care Team (Late st Contact Info) Description 03/07/2025 3:30 PM EDT Office Visit [facility] in [address] [address] Grupo Hendricks, OD [address] [place] [address] Health Maintenance Due Date Last Done Comments CREATININE LEVEL 1953 LIPID PANEL 1953 POTASSIUM LEVEL 1953 DEPRESSION SCREENING 1965 SMOKING Hx and SMOKELESS TOBACCO SCREENING 1966 HEPATITIS C SCREENING 1971 COLOGUARD 1998 COLONOSCOPY 1998 COLORECTAL CANCER SCREENING 1998 FIT TEST 1998 FOBT 1998 SIGMOIDOSCOPY 1998 VIRTUAL COLONOSCOPY 1998 PNEUMOCOCCAL VACCINES (50+ years) (1 of 1 - PCV) 2003 COVID-19 VACCINE (5 - season) 2024 03/18/2022, 06/25/2021, 10/07/2020, Additional history exists RSV VACCINE (1 - 1-dose 75+ series) 2028 Adult Td,Tdap Booster 12/24/2031 12/23/2021 ZOSTER VACCINES Completed 03/18/2021, 12/14/2020 HEPATITIS A VACCINES Aged Out No long er eligible based on patient's age to complete this topic HIB VACCINES Aged Out No longer eligi ble based on patient's age to complete this topic MENINGOCOCCAL VACCINES (ACWY) Aged Out No longer eligible based on patient's age to complete this topic MENINGOCOCCAL VACCINES (B) Aged Out N o longer eligible based on patient's age to complete this topic Medical Devices Implanted Type Area Hunting And Fishing Guide Device Identifier Shelf Expiration Date Model / Serial / Lot Lens Intraocular Ma60ac 26.5d-01/15/2025 Implanted:2024 (Quantity not on file) Lens Left: [employer] 05/30/2029 [id number] .[id number] / / Procedures Procedure Name Priority Date/Time Associated Diagnosis Comments B-SCAN ULTRASOUND - OS - LEFT EYE Routine 01/16/2025 3:23 PM EDT Status post left cataract extraction ECCE/PHACO W/IOL WITHOUT ENDOSCOPIC CYCLOPHOTOCOAGULATION - OS - LEFT EYE Routine 01/15/2025 4:20 PM EDT Nuclear sclerotic cataract of both eyes OPTICAL BIOMETRY - OU - BOTH EYES Routine 12/11/2024 12:32 PM EDT Nuclear sclerotic cataract of both eyes from Last 3 Months Results * B-Scan Ultrasound - OS - Left Eye (01/16/2025 3:23 PM EDT) Anatomical Region Laterality Modality Head ECHOGRAPHY Other Narrative 01/16/2025 4:25 PM EDT Technique: closed lids. Contour: within normal limits. Lens: pseudophakic. Testing performed by: Ragini. Practicing Dermatologist Comments: OS testing complete. Pt cooperated. Notes No lens fragment in vitreous us Shemar Staton OD OPHTHALMOLOGY IMAGING Final Resu lt * ECCE/PHACO w/IOL without Endoscopic Cyclophotocoagulation - OS - Left Eye (01/15/2025 4:20 PM EDT) Other Narrative Natalia Ahn MD - 01/15/2025 4:20 PM EDT [place] Protocol Fall Risk Assessment: age >65 (10 pts), medication regimen (5 pts). Timeout performed: Yes. Iris Bucket Wash Operator: Iris Retractor. Notes Pre-operative diagnosis: visually significant nuclear sclerosis and posterior subcapsular cataract interfering with daily activities, left eye Post-operative diagnosis: Pseudophakia, left eye Procedure: Complex removal of cataract with phacoemulsification and use of iris hooks, placement of a 26.5 diopter MA60AC intraocular lens, left eye Anesthesia: monitored anesthesia care, topical Complication: posterior capsular tear Description of procedure: After the risks, benefits and alternatives of the planned procedure were explained, patient signed the informed consent form. Patient was seen in the preoperative staging area by me and the left eye was marked as the surgical eye. Patient was then moved to the operating room, where monitored anesthesia care was administered. The left eye was prepped and draped in the usual sterile ophthalmic fashion. A lid speculum was placed. A #75 blade was used to make an inferior paracentesis as well as four additional paracentesis ports for placement of iris hooks. Preservative free lidocaine was injected into the anterior chamber, followed by air and Trypan blue to stain the anterior capsule. Iris hooks were placed to retract the iris. Clearvisc was injected into the anterior chamber to cover the endothelium. A 2.85 mm keratome was used to make a beveled clear cornea incision temporally. Cystotome followed by Utrata were used to make a continuous curvilinear capsulorhexis. BSS on cannula was used to hydrodissect and hydrodelineate the lens. The phacoemulsification tip was used to make a central groove which was cracked in half. Each half was removed using back chop technique. At this time a tear was noted in the posterior capsule nasally. Clearvisc was used to tamponade the vitreous. Anterior vitrectomy was performed to remove the vitreous and remaining cortical material. Amvisc was injected into the sulcus. A 26.5 diopter MA60AC intraocular lens was injected into the sulcus and positioned with a Saurabh wand. The remaining viscoelastic material was removed using irrigation/aspiration. Iris hooks were removed. The wounds were hydrated and found to be watertight. The temporal wound was closed with a 10-0 nylon suture. A drop of Vigamox was applied to the eye. An eye shield was placed over the eye. Patient was moved to PACU in stable condition. I performed the entire procedure. Natalia Ahn MD OPHTHALMOLOGY PROCEDURES Final R esult * Optical Biometry - OU - Both Eyes (12/11/2024 12:32 PM EDT) Anterior Chamber Depth - OS 3.34 HARMONY Anterior Chamber Depth - OD 3.35 HARMONY White to White Corneal Diameter (OS) - Left Eye 11.9 HARMONY White to White Corneal Diameter (OD) - Right Eye 11.9 HARMONY Axial Length - OS 22.01 HARMONY Axial Length - OD 23.31 HARMONY Other Narrative HARMONY - 12/11/2024 1:14 PM EDT Right Eye Axial length was 23.31. White to white was 11.9. AC Depth was 3.35. Left Eye Axial length was 22.01. White to white was 11.9. AC Depth was 3.34. General Details Testing performed by: LG. Notes I have reviewed the biometry data.IOL Master done S/P PK OS X 2 SUPER k'S both eyes Man k's done See IOL order Natalia Ahn MD OPHTHALMOLOGY IMAGING Final Resu lt MAKI from Last 3 Months Insurance MEDICARE PART A & B Member Subscriber Plan / Payer (Ef fective 2018-) Name:Arnulfo Alonsocholo Issa Member ID:[id number] Relation to Subscriber:Self Name:Al Alonso Maegan Subscriber ID:[id number] Payer ID:[id number] Group ID:Not on file Type:Medicare Address: [address] [place] [id number] [place] [address] MEDICARE PART A & B Member Subscriber Plan / Payer (Ef fective 2018-Present) Name:Al Alonso Member ID:[id number] Relation to Subscriber:Self Name:CelesteArnulfocholo Issa Subscriber ID:[id number] Payer ID:[id number] Group ID:Not on file Type:Medicare Address: [employer] [address] [place] [id number] [place] [address] Care Teams Net Developer Architect Relationship Specialty Start Date End Date Blanche Godinez MD [address], [place] [phone] PCP - General Family Medicine 11/01/24 Additional Source Comments The information contained in this document represents components of the legal health record. It is not the complete legal health record.[facility]
[2025-02-05 14:01] VITALS: BP 135/68; PULSE 70
== END 2025-02-05 14:10 | disposition home or self-care (01) ==
LOC: HO.HMCSH 13:21
PROVIDERS: PCP Internal Medicine; Visit Provider Physician Assistant Medical
DX: I48.0 Paroxysmal atrial fibrillation (principal); I12.9 Hypertensive chronic kidney disease with stage 1 through stage 4 chronic kidney disease, or unspecified chronic kidney disease; N18.9 Chronic kidney disease, unspecified; R73.03 Prediabetes; E87.5 Hyperkalemia

== ENCOUNTER → 2025-02-05 13:21 | Outpatient (BNVA) | payer MEDICARE, BC, SELFPAY | PROVIDERS: PCP Internal Medicine; Visit Provider Physician Assistant Medical | DX: I48.0 Paroxysmal atrial fibrillation (principal); I12.9 Hypertensive chronic kidney disease with stage 1 through stage 4 chronic kidney disease, or unspecified chronic kidney disease; N18.9 Chronic kidney disease, unspecified; R73.03 Prediabetes; E87.5 Hyperkalemia | CPT/HCPCS: 96127; 99212 ==